=== PATIENT | male | born 1940 | race Caucasian/White ===

== ENCOUNTER → 2024-01-18 10:55 | Outpatient (REF) | payer MEDICARE, OTHER, SELFPAY | LOC: MRI 3T 10:55 | PROVIDERS: ATTENDING PHYSICIAN Physician Assistant Surgical; FAMILY PHYSICIAN Family Medicine | DX: M48.062 Spinal stenosis, lumbar region with neurogenic claudication (principal); M54.50 Low back pain, unspecified; M51.36 Other intervertebral disc degeneration, lumbar region; M41.86 Other forms of scoliosis, lumbar region | CPT/HCPCS: 72148 ==

== ENCOUNTER 2025-01-29 07:21 | Inpatient (IN) | payer MEDICARE, OTHER, SELFPAY ==
--- NOTE | 2025-01-13 12:37 | CM ---
CM reviewed medical records. CM spoke with patient and via Phone. Patient does not have ahistory of VN or SNF. Patient has a cane, walker, raised toilet set and grab bars . Patient is active with his PCP. Patient has medication coverage.
Patient is has his outpatient PT appointment for 02/03 at [facility].
PLAN: home with , outpatient PT.
[2025-01-20 11:47] LABS: Hematocrit 42.3 % (39.0-52.0); Hemoglobin 13.5 g/dL (13.0-18.0); Mean Corp Hgb Conc. 31.9 g/dL (33.0-37.0); Mean Corpuscular Volume 92.0 fL (80.0-94.0); Platelet Count 195 10^3/uL (130-400); Red Cell Dist. Width 13.2 % (11.5-14.5)
[2025-01-20 13:06] LABS: Glycohemoglobin (HgbA1c) 7.0 % (4.0-5.6)
[2025-01-20 14:21] VITALS: BMI 28.6
[2025-01-20 14:50] VITALS: BMI 28.6
[2025-01-20 15:46] LABS: ALT (SGPT) 15 U/L (0-50); AST (SGOT) 20 U/L (17-59); Albumin 4.4 g/dl (3.5-5.0); Alkaline Phosphatase 61 U/L (38-126); Blood Urea Nitrogen 27 mg/dl (9-20); Calcium 9.2 mg/dl (8.4-10.2); Carbon Dioxide 29 mmol/L (22-30); Chloride 101 mmol/L (98-107); Estimated Creatinine Clearance 37 ml/min; Glucose 124 mg/dl (70-99); Potassium 4.7 mmol/L (3.5-5.1); Sodium 140 mmol/L (135-145); Total Protein 7.2 g/dl (6.3-8.2); eGFR 54.85
[2025-01-29] VITALS (15 sets, daily range): BP systolic 107–152; BP diastolic 50–105; PULSE 70–75; O2SAT 92; BMI 28.6
--- NOTE | 2025-01-29 07:41 | W.PN.UPDATE ---
Update Note
Progress Note Update
L knee OA s/p L TKA w/ Dr Lawson 01/29/25
DVT prophylaxis - Eliquis at modified dosing, b/l venous foot pumps
- Will resume home Eliquis dosing on POD 3 if remaining hemodynamically stable
HTN - + parameters - monitor BP
CAD/inferior wall [place], 1993, status post CABG x4; NSTEMI, 2007, status post drug-eluting stent distal SVG to RCA; myocardial infarction, 2009, status post bare metal stent to SVG; status post CABG 2013
PAF
PVCs
Sinus bradycardia, asymptomatic
- Monitor on tele
- Continue BB w/ HR parameters
- Eliquis as stated above
Chronic diastolic HFpEF - reduce hourly IVF rate to prevent fluid overload
- Resume Lasix w/ SBP parameters to avoid post-surgical hypotension
- Monitor weight, I&Os
Renal insufficiency per pre-operative labs - minimize nephrotoxins
Iiu-jqmamft-xlstpbgqa diabetes, A1c 7.0 - monitor BS
- Resume home meds
- Add SSI AC, low dose Lantus at bedtime to accommodate for potential elevated BS readings
- Pt would benefit from Cefadroxil upon d/c for joint prophylaxis
GERD and Hiatal hernia - continue Pepcid
Chronic constipation - continue daily Miralax with our standard bowel regimen of Colace and Senna
Ambulatory dysfunction and balance difficulties - on fall precautions
Cervical degenerative disc disease with myelopathy - increase home Gabapentin dosage to accommodate for post-surgical pain
- Consider change to Lyrica if Gabapentin ineffective
Hypercholesterolemia
Mild valvular disease.
Chronic dyspnea on exertion
Colon polyps
Lumbar stenosis
[2025-01-29 08:00] LABS: Glucose - Point of Care 112 mg/dl (70-99)
[2025-01-29] MEDS: CELEBREX 200 MG PO (08:08)
[2025-01-29] MEDS: TYLENOL 650 MG PO ×5 (08:08→23:20)
[2025-01-29] MEDS: NORMOSOL-R/PLASMALYTE-A 1000 IV ×2 (08:08→13:16)
[2025-01-29 10:57] LABS: Glucose - Point of Care 148 mg/dl (70-99)
[2025-01-29] MEDS: NOVOLOG FLEXPEN-MODERATE RESISTANCE SC (11:30)
[2025-01-29] MEDS: ROXICODONE 5 MG PO (11:31)
[2025-01-29] MEDS: LASIX PO (12:30)
[2025-01-29] MEDS: GLUCOPHAGE 1000 MG PO (13:10)
[2025-01-29] MEDS: FARXIGA 10 MG PO (13:17)
[2025-01-29] MEDS: ANCEF 5 IV ×2 (16:06→23:01)
[2025-01-29 16:09] LABS: Glucose - Point of Care 243 mg/dl (70-99)
[2025-01-29] MEDS: NOVOLOG FLEXPEN-MODERATE RESISTANCE 3 UNITS SC (16:11)
[2025-01-29] MEDS: PEPCID 20 MG PO (17:22)
[2025-01-29] MEDS: LIPITOR 10 MG PO (17:23)
[2025-01-29] MEDS: LOPRESSOR 50 MG PO (17:24)
[2025-01-29] MEDS: COLACE 100 MG PO (20:20)
[2025-01-29] MEDS: ELIQUIS 2.5 MG PO (20:20)
[2025-01-29] MEDS: BACTROBAN 2% OINTMENT 1 APPLIC NASAL (20:20)
[2025-01-29] MEDS: NEURONTIN 200 MG PO (20:20)
[2025-01-29] MEDS: SENOKOT 17.2 MG PO (20:20)
[2025-01-29 21:27] LABS: Glucose - Point of Care 162 mg/dl (70-99)
[2025-01-29] MEDS: LANTUS 0.05 UNITS SC (21:50)
[2025-01-30] VITALS (9 sets, daily range): BP systolic 90–144; BP diastolic 48–73; PULSE 57–62; O2SAT 92; BMI 30.6; BMI 30.7
[2025-01-30] MEDS: TYLENOL 650 MG PO ×5 (04:00→20:26)
[2025-01-30 07:54] LABS: Glucose - Point of Care 136 mg/dl (70-99)
--- NOTE | 2025-01-30 08:16 | CM ---
CM reviewed medical records.
Patient for outpatient PT and return home to care of his .
PLAN: Home with outpatient PT
[2025-01-30 08:53] LABS: Blood Urea Nitrogen 32 mg/dl (9-20); Calcium 8.7 mg/dl (8.4-10.2); Carbon Dioxide 27 mmol/L (22-30); Chloride 100 mmol/L (98-107); Estimated Creatinine Clearance 46 ml/min; Glucose 133 mg/dl (70-99); Potassium 5.3 mmol/L (3.5-5.1); Sodium 135 mmol/L (135-145); eGFR > 60.00
[2025-01-30] MEDS: NOVOLOG FLEXPEN-MODERATE RESISTANCE SC ×2 (09:47→17:42)
[2025-01-30] MEDS: COLACE 100 MG PO ×2 (09:48→20:27)
[2025-01-30] MEDS: BACTROBAN 2% OINTMENT 1 APPLIC NASAL ×2 (09:48→20:26)
[2025-01-30] MEDS: FARXIGA 10 MG PO (09:48)
[2025-01-30] MEDS: ELIQUIS 2.5 MG PO ×2 (09:49→20:27)
[2025-01-30] MEDS: SENOKOT 17.2 MG PO ×2 (09:50→20:27)
[2025-01-30] MEDS: NEURONTIN 200 MG PO ×2 (09:50→20:27)
[2025-01-30] MEDS: GLUCOPHAGE 1000 MG PO (09:51)
[2025-01-30] MEDS: MIRALAX 17 GRAMS PO (09:51)
[2025-01-30] MEDS: LASIX PO (09:51)
[2025-01-30] MEDS: LOPRESSOR 75 MG PO (09:51)
[2025-01-30] MEDS: LASIX 40 MG IV ×2 (09:54→18:46)
--- NOTE | 2025-01-30 10:09 | W.PN.ORTHO ---
Today's Communication / Plan
-
Diurese today. Monitor weight, I&Os, and BMP in AM.
Work w/ PT and OT as able.
D/c when clinically stable.
Assessment
.
Distal Motor Intact: Yes
Dressing:
Clean, dry and intact.
Assessment:
L knee OA s/p L TKA w/ Dr Lawson 01/29/25
DVT prophylaxis - Eliquis at modified dosing, b/l venous foot pumps
- Will resume home Eliquis dosing on POD 3 if remaining hemodynamically stable
HTN - + parameters - BPs soft but stable, pt asymptomatic
- Will order Midodrine TID for SBP <125 while on increased dosing of Furosemide for acute CHF
CAD/inferior wall [place], 1993, status post CABG x4; NSTEMI, 2007, status post drug-eluting stent distal SVG to RCA; myocardial infarction, 2009, status post bare metal stent to SVG; status post CABG 2012
PAF
PVCs
Sinus bradycardia, asymptomatic
- Maintaining NSR on tele
- Continue BB w/ HR parameters
- Eliquis as stated above
Chronic diastolic HFpEF - reduced hourly IVF rate in an attempt to prevent fluid overload; unfortunately, weight is up from baseline and proBNP elevated at 3120, indicating acute CHF
- Baseline weight per pt 168-172 lbs
- Diurese w/ Lasix today at BID dosing. BMP stable this AM -> will reassess tomorrow.
- Fluid restriction and low Na diet
- Monitor weight, I&Os
- Consider cardio consult if weight does not improve
Renal insufficiency per pre-operative labs - minimize nephrotoxins
Own-shdzrhm-jytxrjxjk diabetes, A1c 7.0 - BS readings stable w/ resumption of home meds and SSI AC/low dose Lantus HS while inpatient
- Pt would benefit from Cefadroxil upon d/c for joint prophylaxis
GERD and Hiatal hernia - continue Pepcid
Chronic constipation - continue daily Miralax with our standard bowel regimen of Colace and Senna
Ambulatory dysfunction and balance difficulties - on fall precautions
Cervical degenerative disc disease with myelopathy - increased home Gabapentin dosage to accommodate for post-surgical pain
- Consider change to Lyrica if Gabapentin ineffective
Hypercholesterolemia
Mild valvular disease.
Chronic dyspnea on exertion
Colon polyps
Lumbar stenosis
Plan
.
Surgery / Date: L TKA w/ Dr Lawson 01/29/25
DVT Prophylaxis: Other (Eliquis )
Activity:
Out of bed.
PT/OT
Discharge Plan: Home w/ Outpatient PT
Subjective
.
.:
Patient resting comfortably in his chair.
L knee pain well tolerated w/ minimal pain meds.
Denies any new significant complaints; however, weight notably up from pre-op assessment.
Vital Signs and Labs
.
Vital Signs and Labs:
Lab Results
01/20/25 10:08
01/30/25 08:24
Temp Pulse Resp BP Pulse Ox
97.8 F 65 18 124/67 98
01/30/25 07:50 01/30/25 07:50 01/30/25 07:50 01/30/25 07:50 01/30/25 07:50
Non-invasive Hgb result: 12.6
Physical Exam
-
HEENT: No pallor, cyanosis, or jaundice. Throat clear.
NECK: Supple. No JVD.
RESPIRATORY: Fine crackles b/l lung bases.
CVS: S1, S2 normal. RRR.�
ABDOMEN: Soft, non-tender. No distension.
EXTREMITIES: Expected post-surgical L knee edema. Strength equal, no calf pain with palpation/dorsiflexion. Calves soft.
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 No focal deficits. 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
--- NOTE | 2025-01-30 10:32 | W.DS.TRANS ---
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
-
Discharge Instructions:
Sleep Apnea Risk Low
Discharge Diagnosis/Procedures L knee OA s/p L TKA w/ Dr Lawson 01/29/2025
Diet Diabetic, Carb Controlled
Additional Diets Minimize opioids and wear TEDs stockings to
prevent low blood pressure/dizziness.
Activity As tolerated,With Walker
Driving Restrictions Not until seen by your Dr
Bathing Restrictions OK to Shower
Other Services PT
Wound Care Dressing to be removed 1 week post-surgery.
Specialty Instructions Weigh Daily
Instructions:
Stand-Alone Forms: Total Hip/Knee Replacement D/C
Changes to Home Medications: Yes
Discharge Medications:
DC Medications w/original date entered in [facility]
apixaban 5 mg tablet (Eliquis) 5 mg PO BID Blood Clot Prevention/Tx 01/17/25
Held on 01/30/25. Instructions: Resume on 02/01/25.
empagliflozin 10 mg tablet (Jardiance) 10 mg PO DAILY Diabetes 01/17/25
famotidine 40 mg tablet (Pepcid) 40 mg PO QPM Gastrointestinal Issue 01/17/25
metformin 1,000 mg tablet 1,000 mg PO DAILY Diabetes 01/17/25
metoprolol tartrate 50 mg tablet (Lopressor) 50 mg PO QPM Blood Pressure 01/17/25
metoprolol tartrate 50 mg tablet (Lopressor) 75 mg PO DAILY Blood Pressure 01/17/25
multivitamin 1 tab PO DAILY Supplement 01/17/25
omega 9-tvh-bno-fish oil 1,000 mg (120 mg-180 mg) capsule (Fish Oil) 1 cap PO QPM Supplement 01/17/25
Held on 01/30/25. Instructions: Resume on 02/05/25.
pitavastatin calcium 2 mg tablet (Livalo) 2 mg PO QPM High Cholesterol 01/17/25
mupirocin 2 % topical ointment 1 applic intranasal BID #1 tube 01/20/25
Saccharomyces boulardii 250 mg capsule (Florastor) 250 mg PO DAILY #7 caps 01/30/25
acetaminophen 325 mg tablet (Tylenol) 650 mg (2 x 325 mg) PO Q4HWA #60 tabs 01/30/25
apixaban 2.5 mg tablet (Eliquis) 2.5 mg PO BID #1 tab 01/30/25
cefadroxil 500 mg capsule 500 mg PO DAILY #7 caps 01/30/25
docusate sodium 100 mg capsule 100 mg PO BID #30 caps 01/30/25
furosemide 40 mg tablet (Lasix) 40 mg PO DAILY Fluid Retention/Swelling #1 tab 01/30/25
gabapentin 100 mg capsule 200 mg (2 x 100 mg) PO BID #14 caps 01/30/25
ondansetron HCl 4 mg tablet 4 mg PO Q6H PRN nausea and vomiting #30 tabs 01/30/25
oxycodone 5 mg tablet 5 - 10 mg (1 - 2 x 5 mg) PO Q6H PRN moderate-severe pain #30 tabs 01/30/25
polyethylene glycol 3350 17 gram oral powder packet 17 g PO DAILY #14 ea 01/30/25
sennosides 8.6 mg tablet (Ilda-paul) 17.2 mg (2 x 8.6 mg) PO BID #60 tabs 01/30/25
Home Medication Changes
Saccharomyces boulardii 250 mg capsule (Florastor) 250 mg PO DAILY #7 caps 01/30/25
acetaminophen 325 mg tablet (Tylenol) 650 mg (2 x 325 mg) PO Q4HWA #60 tabs 01/30/25
apixaban 2.5 mg tablet (Eliquis) 2.5 mg PO BID #1 tab 01/30/25 - until POD 3
cefadroxil 500 mg capsule 500 mg PO DAILY #7 caps 01/30/25
docusate sodium 100 mg capsule 100 mg PO BID #30 caps 01/30/25
gabapentin 100 mg capsule 200 mg (2 x 100 mg) PO BID #14 caps 01/30/25 - until POD 7
ondansetron HCl 4 mg tablet 4 mg PO Q6H PRN nausea and vomiting #30 tabs 01/30/25
oxycodone 5 mg tablet 5 - 10 mg (1 - 2 x 5 mg) PO Q6H PRN moderate-severe pain #30 tabs 01/30/25
polyethylene glycol 3350 17 gram oral powder packet 17 g PO DAILY #14 ea 01/30/25
sennosides 8.6 mg tablet (Ilda-paul) 17.2 mg (2 x 8.6 mg) PO BID #60 tabs 01/30/25
Pending Results: No
[2025-01-30 12:12] LABS: Glucose - Point of Care 203 mg/dl (70-99)
[2025-01-30] MEDS: NOVOLOG FLEXPEN-MODERATE RESISTANCE 3 UNITS SC (12:49)
[2025-01-30] MEDS: ROXICODONE 5 MG PO (15:38)
[2025-01-30 16:40] LABS: Glucose - Point of Care 136 mg/dl (70-99)
[2025-01-30] MEDS: PEPCID 20 MG PO (18:46)
[2025-01-30] MEDS: LIPITOR 10 MG PO (18:46)
[2025-01-30] MEDS: LOPRESSOR PO ×2 (18:47→18:54)
[2025-01-30 21:24] LABS: Glucose - Point of Care 171 mg/dl (70-99)
[2025-01-30] MEDS: LANTUS 0.05 UNITS SC (21:59)
[2025-01-31] VITALS (9 sets, daily range): BP systolic 89–132; BP diastolic 55–88; PULSE 81; O2SAT 96; BMI 30.1
[2025-01-31] MEDS: TYLENOL PO (00:57)
[2025-01-31] MEDS: TYLENOL 650 MG PO ×5 (03:13→19:45)
[2025-01-31 07:56] LABS: Blood Urea Nitrogen 35 mg/dl (9-20); Calcium 8.6 mg/dl (8.4-10.2); Carbon Dioxide 29 mmol/L (22-30); Chloride 100 mmol/L (98-107); Estimated Creatinine Clearance 42 ml/min; Glucose 111 mg/dl (70-99); Potassium 4.4 mmol/L (3.5-5.1); Sodium 136 mmol/L (135-145); eGFR 54.85
[2025-01-31] MEDS: NOVOLOG FLEXPEN-MODERATE RESISTANCE SC ×2 (08:31→18:27)
[2025-01-31] MEDS: SENOKOT 17.2 MG PO ×2 (08:32→19:45)
[2025-01-31] MEDS: FARXIGA 10 MG PO (08:32)
[2025-01-31] MEDS: LOPRESSOR 75 MG PO (08:32)
[2025-01-31] MEDS: GLUCOPHAGE 1000 MG PO (08:32)
[2025-01-31] MEDS: NEURONTIN 200 MG PO ×2 (08:32→19:44)
[2025-01-31] MEDS: COLACE 100 MG PO ×2 (08:33→19:44)
[2025-01-31] MEDS: ELIQUIS 2.5 MG PO ×2 (08:33→19:44)
[2025-01-31] MEDS: MIRALAX 17 GRAMS PO (08:34)
[2025-01-31] MEDS: LASIX 40 MG PO (08:34)
[2025-01-31 08:41] LABS: Glucose - Point of Care 130 mg/dl (70-99)
--- NOTE | 2025-01-31 10:06 | W.PN.ORTHO ---
Today's Communication / Plan
-
L knee OA s/p L TKA w/ Dr Lawson 01/29/25
DVT prophylaxis - Eliquis at modified dosing, b/l venous foot pumps
- Will resume home Eliquis dosing on POD 3 if remaining hemodynamically stable
HTN - + parameters - variable orthostatic hypotension, Midrodine ordered yesterday
CAD/inferior wall [place], 1993, status post CABG x4; NSTEMI, 2007, status post drug-eluting stent distal SVG to RCA; myocardial infarction, 2009, status post bare metal stent to SVG; status post CABG 2013
PAF
PVCs
Sinus bradycardia, asymptomatic
- Maintaining NSR on tele
- Continue BB w/ HR parameters
- Eliquis as stated above
Chronic diastolic HFpEF - reduced hourly IVF rate in an attempt to prevent fluid overload; unfortunately, weight is up from baseline and proBNP elevated at 3120, indicating acute CHF
- Baseline weight per pt 168-172 lbs
- Diurese w/ Lasix today at BID dosing. BMP stable this AM -> will reassess tomorrow.
- Fluid restriction and low Na diet
- Monitor weight, I&Os
- Minor improvement on weight- plan for cardiology consultation and hospitalist to assist in management.
Renal insufficiency per pre-operative labs - minimize nephrotoxins
Kkx-eahtjhy-hrumzsevc diabetes, A1c 7.0 - BS readings stable w/ resumption of home meds and SSI AC/low dose Lantus HS while inpatient
- Pt would benefit from Cefadroxil upon d/c for joint prophylaxis
GERD and Hiatal hernia - continue Pepcid
Chronic constipation - continue daily Miralax with our standard bowel regimen of Colace and Senna
Ambulatory dysfunction and balance difficulties - on fall precautions
Postoperative urinary retention- refractory to cathx3- will consult urology.
Cervical degenerative disc disease with myelopathy - increased home Gabapentin dosage to accommodate for post-surgical pain
- Consider change to Lyrica if Gabapentin ineffective
Hypercholesterolemia
Mild valvular disease.
Chronic dyspnea on exertion
Colon polyps
Lumbar stenosis
Assessment
.
Distal Motor Intact: Yes
Dressing:
Clean, dry and intact.
Plan
.
Surgery / Date: Francisco molina/ Dr Lawson 01/29/25
Activity:
Out of bed.
PT/OT
Subjective
.
.:
Patient resting. Reports significant fatigue with PT and difficulty performing. Nursing reports urinary cath x3. Minor improvement in weight reduction but persisting orthostatic hypotension.
Vital Signs and Labs
.
Vital Signs and Labs:
Lab Results
01/20/25 10:08
01/31/25 06:20
Temp Pulse Resp BP Pulse Ox
97.7 F 90 16 119/76 92
01/31/25 07:25 01/31/25 07:25 01/31/25 07:25 01/31/25 08:32 01/31/25 07:25
Non-invasive Hgb result: 10.7
--- NOTE | 2025-01-31 10:55 | W.PN.URO.CBU ---
Today's Communication / Plan
-
place ector toney in [facility]
Assessment / Plan
-
[post op retention on pt with bph preop sxs . Will place [facility] will con asider flomax 04. if ok wuith cad=rdiology post op outpatient eval
Diagnosis
-
Date of Service: January 31, 2025
-
post op acute urinary retention 1000cc inpt with preop double cvoiding slow streamPatient Diagnosis:
Post Op Day:
Subjective
-
cannot void
Objective
-
Vital Signs
Temp Pulse Resp BP Pulse Ox
97.7 F 90 16 119/76 92
01/31/25 07:25 01/31/25 07:25 01/31/25 07:25 01/31/25 08:32 01/31/25 07:25
Intake and Output
01/30/25 01/31/25 02/01/25
06:59 06:59 06:59
Intake Total 2580 / 2580 240 / 240
Output Total 695 / 695 2825 / 2825 500 / 500
Balance 1885 / 1885 -2585 / -2585 -500 / -500
Intake:
Oral fluids 1620 / 1620 240 / 240
IV fluids (Total) 960 / 960
Output:
Urine, Voided 695 / 695 600 / 600
Straight cath output 2225 / 2225 500 / 500
Other:
Number of approximated MODERATE 1
amounts of urine
Laboratory Results
01/20/25 10:08
01/31/25 06:20
Review of Systems
-
Cardiac: Syncope
: Difficulty Voiding
Physical Exam
-
General - well developed, well nourished, no acute distress
Chest - clear bilaterally
Abdomen - soft, non-tender, positive bowel sounds, no CVAT, no incisional pain or distention
Genitalia - normal
Rectal - normal
Skin - warm & dry with no rash
Neuro - AOx3, no motor deficits
Extremities - no clubbing, no cyanosis, no edema
Incision - clean, dry
Dressing - clean, dry, intact
Care Review
Data Reviewed
Discussed with: Nursing and Family
--- NOTE | 2025-01-31 11:01 | CON.CAR ---
Consultation
Consultation Request
Date/Time Consultation Requested: January 31, 2025 11 AM
Date/Time Consultation Performed: February 01, 2020 5:11 AM
Requesting Provider: Orthopedic service
Performing Provider: Dr Vishal Mathew
Reason for Consultation: Congestive heart failure
Medical History
-
Chief Complaint: Shortness of breath
History of Present Illness:
She presented for elective for elective left knee total arthroplasty by Dr. Lawson on January 29, 2025.
Course has been complicated by urinary retention and volume overload leading to acute heart failure with preserved ejection fraction.
Urology has been consulted and additionally cardiology has been consulted to assist in management of acute on known HFpEF
proBNP on 01/30/2025 is 3120
Patient given 40 mg of IV Lasix 7/3 and 40 mg PO Lasix 7/4
Straight catheter placed by urology removed 1 L of fluid
Fluid balance over the past 24 hours is -3 L
Her baseline weights have been reported at 168-172 pounds. On 01/30/2025 weight is 178 pounds 9 ounces, weight this morning is 175 pounds 2 ounces.
PMH:
1. Osteoarthritis.
2. Hypertension.
3. Hypercholesterolemia.
4. Coronary artery disease/inferior wall myocardial infarction, 1993,
status post CABG x4; NSTEMI, 2008, status post drug-eluting
stent distal SVG to RCA; myocardial infarction, 2009, status
post bare metal stent to SVG; status post CABG 2012.
5. Paroxysmal atrial fibrillation, pharmacological therapy with
Lopressor and oral anticoagulation with Eliquis.
6. PVCs.
7. Sinus bradycardia, asymptomatic.
8. Chronic diastolic heart failure, preserved ejection fraction.
9. Mild valvular disease.
10. Chronic dyspnea on exertion.
11. Renal insufficiency per pre-operative labs.
12. Xpr-xurqwzc-qkegelnjb diabetes, A1c 7.0.
13. GERD.
14. Hiatal hernia.
15. Colon polyps.
16. Chronic constipation.
17. Ambulatory dysfunction and balance difficulties.
18. Cervical degenerative disc disease with myelopathy.
19. Lumbar stenosis.
20. Chronic kidney disease with baseline creatinine of approximately 1.2�1.3 with estimated GFR of between 37 and 46
Social History
Tobacco: Non-Smoker
Alcohol: None
Drug: None
Personal:
Living: With Family
Family History
Family History: Reviewed & Not Pertinent
Allergies / Home Medications
Allergy/AdvReac Type Severity Reaction Status Date / Time
No Known Allergies Allergy Unverified 01/29/25 07:35
�Medication �Instructions �Recorded �Confirmed �Type
apixaban 5 mg tablet (Eliquis) 5 mg PO BID Blood Clot 01/17/25 01/29/25 History
Held on 01/30/25. Prevention/Tx
Instructions: Resume on
02/01/25.
empagliflozin 10 mg tablet 10 mg PO DAILY Diabetes 01/17/25 01/29/25 History
(Jardiance)
famotidine 40 mg tablet (Pepcid) 40 mg PO QPM Gastrointestinal Issue 01/17/25 01/29/25 History
metformin 1,000 mg tablet 1,000 mg PO DAILY Diabetes 01/17/25 01/29/25 History
metoprolol tartrate 50 mg tablet 50 mg PO QPM Blood Pressure 01/17/25 01/29/25 History
(Lopressor)
metoprolol tartrate 50 mg tablet 75 mg PO DAILY Blood Pressure 01/17/25 01/29/25 History
(Lopressor)
multivitamin 1 tab PO DAILY Supplement 01/17/25 01/29/25 History
omega 9-zbn-hdt-fish oil 1,000 mg 1 cap PO QPM Supplement 01/17/25 01/29/25 History
(120 mg-180 mg) capsule (Fish Oil)
Held on 01/30/25.
Instructions: Resume on
02/05/25.
pitavastatin calcium 2 mg tablet 2 mg PO QPM High Cholesterol 01/17/25 01/29/25 History
(Livalo)
mupirocin 2 % topical ointment 1 applic intranasal BID #1 tube 01/20/25 Rx
Saccharomyces boulardii 250 mg 250 mg PO DAILY #7 caps 01/30/25 Rx
capsule (Florastor)
acetaminophen 325 mg tablet 650 mg (2 x 325 mg) PO Q4HWA #60 01/30/25 01/29/25 Rx
(Tylenol) tabs
apixaban 2.5 mg tablet (Eliquis) 2.5 mg PO BID #1 tab 01/30/25 Rx
cefadroxil 500 mg capsule 500 mg PO DAILY #7 caps 01/30/25 Rx
docusate sodium 100 mg capsule 100 mg PO BID #30 caps 01/30/25 Rx
furosemide 40 mg tablet (Lasix) 40 mg PO DAILY Fluid 01/30/25 01/29/25 Rx
Retention/Swelling #1 tab
gabapentin 100 mg capsule 200 mg (2 x 100 mg) PO BID #14 caps 01/30/25 Rx
ondansetron HCl 4 mg tablet 4 mg PO Q6H PRN nausea and 01/30/25 Rx
vomiting #30 tabs
oxycodone 5 mg tablet 5 - 10 mg (1 - 2 x 5 mg) PO Q6H 01/30/25 Rx
PRN moderate-severe pain #30 tabs
polyethylene glycol 3350 17 gram 17 g PO DAILY #14 ea 01/30/25 Rx
oral powder packet
sennosides 8.6 mg tablet (Ilda-paul) 17.2 mg (2 x 8.6 mg) PO BID #60 01/30/25 Rx
tabs
Review of Systems
-
History Source: Patient
All other systems: Negative unless noted
Constitutional: No Symptoms
EENT: No Symptoms
Respiratory: Trouble Breathing
Cardiac: No Symptoms
Abdomen/GI: No Symptoms
: Difficulty Voiding
Musculoskeletal: Joint Pain
Skin: No Symptoms
Neurological: Dizzy
Endocrine: No Symptoms
Hematologic/Lymphatic: No Symptoms
Physical Exam
Vital Signs
Temp Pulse Resp BP Pulse Ox
97.7 F 90 16 119/76 92
01/31/25 07:25 01/31/25 07:25 01/31/25 07:25 01/31/25 08:32 01/31/25 07:25
Lab Results
01/20/25 10:08
01/31/25 06:20
Alh-H-Jbfifwdsuwj Pept 3120 pg/ml 01/30/25 08:24
Physical Exam
General: Well Developed, Well Nourished, No Apparent Distress and Comfortable
HEENT: Normocephalic, Anicteric and Moist Mucous Membranes
Respiratory: Clear and Non Labored Respirations
Cardiac: S1/S2, Regular Rhythm and Other (Grade 1/6 apical holosystolic murmur, no rubs, normal PMI)
Breast: Deferred by me
GI: Soft, Non Tender, Non Distended and Normal Bowel Sounds
Rectal: Deferred by Provider
Musculoskeletal: No Clubbing, No Cyanosis and Edema (Trace pretibial edema bilaterally)
Skin: Warm and Dry
Neuro: Awake, Alert, Oriented and AO x 3
Psych: Calm
Impression / Plan
-
Primary medical, Dr. Stephany Anna
Cardiology, Dr. Matthew Chairez
Cardiac Impression:
Acute on chronic heart failure with preserved ejection fraction
Likely related to fluid overload during his hospital stay combined with postop urinary retention
Known coronary artery disease as listed in this document
Stable, no symptoms to suggest acute coronary syndrome
Paroxysmal atrial fibrillation
As an outpatient has been on Eliquis 5 mg twice daily for atrial fibrillation related thromboembolic risk reduction
Echocardiogram 08/03/2024: Ejection fraction 58%. No wall motion
abnormality. Severely reduced right ventricular systolic function.
Mildly dilated left atrium. Normal right atrium. Structurally normal
tricuspid valve without elevated PA systolic pressure. Mild mitral
regurgitation. Mild aortic stenosis. Mean gradient 12 mmHg.
Cardiac recommendations:
Significant diuresis over the past 24 hours, 3 L
Symptoms of shortness of breath have significantly improved/resolved.
By physical exam he is unlikely to be significantly intravascularly volume overloaded this morning.
Given his urinary retention he is planned for Becker catheter prior to discharge
- Recommend continuing home dose of oral Lasix at 40 mg daily
He has been having some symptomatic orthostatic hypotension, likely related to dysautonomia
- Avoid overdiuresis, no more IV Lasix
- Agree with use of midodrine
I reviewed my findings and recommendations with the patient, his and his daughter who are at bedside.
I have no objection to discharge home from a cardiac standpoint
Will sign off, please call us directly if we can be of any further assistance
Total time spent today was 75 minutes in preparing to see the patient, seeing the patient and coordination of care. This included review of recent laboratory evaluations, cardiact testing, imaging studies, primary care rtecords, specialty
consultations, hospital records, as well as personally interviewing and examining the patient, which included discussion of their tests, review/ordering medications, and communicating with other healthcare professionals and also treatment planning
as well as counseling.
Data Reviewed
-
Radiology: Report Reviewed by me
Medical Tests (Nuc Med, Echo etc): Report Reviewed by me
Labs: Labs Reviewed by me
--- NOTE | 2025-01-31 11:27 | CON.HOSP ---
Consultation
-
Date/Time Consultation Requested: 01/31/2025 10:30 AM
Date/Time Consultation Performed: 01/31/2025 11:30 AM
Requesting Provider: Dr. Lawson
Performing Provider: Dr. Leal
Reason for Consultation: Medical management
Family Physician
-
Family Physician: Stephany Anna
Chief Complaint
-
Medical management
History of Present Illness
84-year-old man was admitted for left total knee arthroplasty by Dr. Lawson. Postoperatively he had urinary retention, CHF fatigue and lethargy along with orthostatic hypotension. We are consulted for medical management. says that pt's BP
has been running low for the past month. She had preop cardiac check, but is not sure when his last echo was.
Medical History
Past Medical History
Past Medical History: Reports Other
Additional Past Medical History:
Chronic back pain, CHF, hyperlipidemia, constipation, GERD, arthritis, diabetes, coronary artery disease, atrial fibrillation, diabetic neuropathy
Past Surgical History: Reports Other (, lumbar laminectomy, bilateral carpal tunnel surgery, inguinal hernia repair, left knee arthroplasty, cardiac stent placement, cervical osteophyte C6 level surgery, left knee arthroscopy, C4-5 laminectomy,
umbilical hernia repair, sebaceous cyst excision, hemorrhoidal banding, rhizotomy, m)
Additional Past Surgical History:
CABG 1993 and redo in 2012
Social History
Tobacco: Non-smoker
Alcohol: None
Drug: None
Personal:
Living: With Family (Uses a chairlift between 1st and 2nd floors)
Family History
Family History: Reviewed & Not Pertinent
Allergies / Home Medications
Allergies reflects when Allergies were last updated in [facility].
Home Medications with original date entered in [facility]
Allergy/Medication List:
Allergies
Allergy/AdvReac Type Severity Reaction Status Date / Time
No Known Allergies Allergy Unverified 01/29/25 07:35
Home Medications
apixaban 5 mg tablet (Eliquis) 5 mg PO BID Blood Clot Prevention/Tx 01/17/25
Held on 01/30/25. Instructions: Resume on 02/01/25.
empagliflozin 10 mg tablet (Jardiance) 10 mg PO DAILY Diabetes 01/17/25
famotidine 40 mg tablet (Pepcid) 40 mg PO QPM Gastrointestinal Issue 01/17/25
metformin 1,000 mg tablet 1,000 mg PO DAILY Diabetes 01/17/25
metoprolol tartrate 50 mg tablet (Lopressor) 50 mg PO QPM Blood Pressure 01/17/25
metoprolol tartrate 50 mg tablet (Lopressor) 75 mg PO DAILY Blood Pressure 01/17/25
multivitamin 1 tab PO DAILY Supplement 01/17/25
omega [id number]-rrg-gtu-fish oil 1,000 mg (120 mg-180 mg) capsule (Fish Oil) 1 cap PO QPM Supplement 01/17/25
Held on 01/30/25. Instructions: Resume on 02/05/25.
pitavastatin calcium 2 mg tablet (Livalo) 2 mg PO QPM High Cholesterol 01/17/25
mupirocin 2 % topical ointment 1 applic intranasal BID #1 tube 01/20/25
Saccharomyces boulardii 250 mg capsule (Florastor) 250 mg PO DAILY #7 caps 01/30/25
acetaminophen 325 mg tablet (Tylenol) 650 mg (2 x 325 mg) PO Q4HWA #60 tabs 01/30/25
apixaban 2.5 mg tablet (Eliquis) 2.5 mg PO BID #1 tab 01/30/25
cefadroxil 500 mg capsule 500 mg PO DAILY #7 caps 01/30/25
docusate sodium 100 mg capsule 100 mg PO BID #30 caps 01/30/25
furosemide 40 mg tablet (Lasix) 40 mg PO DAILY Fluid Retention/Swelling #1 tab 01/30/25
gabapentin 100 mg capsule 200 mg (2 x 100 mg) PO BID #14 caps 01/30/25
ondansetron HCl 4 mg tablet 4 mg PO Q6H PRN nausea and vomiting #30 tabs 01/30/25
oxycodone 5 mg tablet 5 - 10 mg (1 - 2 x 5 mg) PO Q6H PRN moderate-severe pain #30 tabs 01/30/25
polyethylene glycol 3350 17 gram oral powder packet 17 g PO DAILY #14 ea 01/30/25
sennosides 8.6 mg tablet (Ilda-paul) 17.2 mg (2 x 8.6 mg) PO BID #60 tabs 01/30/25
Review of Systems
-
Constitutional: Reports Weight Gain; Denies Fever
Respiratory: Denies Trouble Breathing
Cardiac: Denies Chest Pain
Abdomen/GI: Denies Abdominal Pain
: Reports Difficulty Voiding
Musculoskeletal: Reports Joint Pain (left knee)
Neurological: Reports Dizzy
Physical Exam
Vital Signs
Vital Signs
Temp Pulse Resp BP Pulse Ox
97.8 F 67 16 95/55 96
01/31/25 11:26 01/31/25 11:26 01/31/25 11:26 01/31/25 11:26 01/31/25 11:26
Physical Exam
Respiratory: Clear
Cardiac: S1/S2 and Regular Rhythm
GI: Soft, Non Tender and Normal Bowel Sounds
Musculoskeletal: No Edema (mild knee site edema left side)
Skin: Warm
Neuro: AO x 3 and No Motor Deficits
Psych: Intact Judgement
Laboratory Results
-
Laboratory Results
01/20/25 10:08
01/31/25 06:20
Total Bilirubin 1.0 mg/dl (0.2-1.3) 01/20/25 10:08
AST 20 U/L (17-59) 01/20/25 10:08
ALT 15 U/L (0-50) 01/20/25 10:08
Alkaline Phosphatase 61 U/L (38-126) 01/20/25 10:08
Impression / Plan
-
IMPRESSION/PLAN:
# Acute on chronic HFpEF
Check EKG and troponin, chest x-ray
Echo 08/03/2024-EF 58%. No wall motion abnormality. Severely reduced RV systolic function. Mildly dilated LA, normal RA mild MR, mild .
Patient follows up with Dr. Matthew Polanco at [facility].
Patient got 40 mg Lasix IV on 01/31/2024 and 40 mg p.o. Lasix on 02/01/2024
Hold further IV Lasix
Cardiology has been consulted
# Urinary retention-Becker catheter to be placed today. If blood pressure can tolerate consider Flomax. Urology consultation noted
# Dizziness, orthostatic hypotension- Add TSH and Cortisol level. Hold further Lasix today. Resume PO Lasix tomorrow. Agree with Midodrine.
# Coronary artery disease with history of inferior wall [place] in 1993
CABG 1993 and redo in 2012
History of cardiac stents drug-eluting stent distal SVG to RCA.Bare metal stent to SVG.
No chest pain EKG with no acute changes
# Paroxysmal atrial fibrillation
Patient was on Eliquis and metoprolol
Currently on Eliquis 2.5 mg twice daily
Restart full anticoagulation when okay with orthopedics
# Hyperlipidemia-continue Livalo or equivalent
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
# Diabetes mellitus-hemoglobin A1c 7.0 on 01/20/2025
Jardiance, metformin as outpatient. Also on Lantus 5 HS and SS here
Sugars mostly under control.
# Hiatal hernia continue Pepcid
# Chronic constipation- Bowel regimen
# History of L4-L5 partial laminectomies, multiple lumbar level and large disc bulge and osteoarthritis
Cervical degenerative disc disease with myelopathy. C4-C5 laminectomy.
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
# Ambulatory dysfunction- has a chair lift at home
# DVT prophylaxis-Eliquis
D/W and 2 daughters at bed side
D/W RN
Patient likely needs to be watched with symptoms of dizziness and orthostasis, if blood pressure improves can be discharged tomorrow. PT is recommending SNF
Thank you for allowing us to participate in this patient's care. We will follow
Part of this note was created using voice recognition system. Occasional wrong word or��sound alike� substitutions may have inadvertently occurred due to the inherent limitations of voice recognition software. If noted kindly bring it to my
attention for correction.
[2025-01-31 12:18] LABS: Hematocrit 31.8 % (39.0-52.0); Hemoglobin 10.5 g/dL (13.0-18.0); Mean Corp Hgb Conc. 33.0 g/dL (33.0-37.0); Mean Corpuscular Volume 90.6 fL (80.0-94.0); Platelet Count 133 10^3/uL (130-400); Red Cell Dist. Width 13.6 % (11.5-14.5)
[2025-01-31 12:39] LABS: Glucose - Point of Care 160 mg/dl (70-99)
[2025-01-31] MEDS: NOVOLOG FLEXPEN-MODERATE RESISTANCE 1 UNITS SC (12:47)
[2025-01-31] MEDS: MILK OF MAGNESIA 30 ML PO (12:49)
[2025-01-31 13:06] LABS: Troponin I 0.597 ng/ml
[2025-01-31 13:54] LABS: Cortisol, Random 13.4 ug/dl
[2025-01-31] MEDS: PEPCID 20 MG PO (16:55)
[2025-01-31] MEDS: LIPITOR 10 MG PO (16:55)
[2025-01-31] MEDS: LOPRESSOR 50 MG PO ×2 (16:56→19:44)
[2025-01-31 17:29] LABS: Troponin I 1.360 ng/ml
[2025-01-31 17:33] LABS: Glucose - Point of Care 174 mg/dl (70-99)
--- NOTE | 2025-01-31 18:35 | PTCARENOTE ---
dr. Mathew notified of troponin 1.360
[2025-01-31 19:14] LABS: Troponin I 1.810 ng/ml
[2025-01-31 21:05] LABS: Troponin I 1.940 ng/ml
[2025-01-31 21:47] LABS: Glucose - Point of Care 149 mg/dl (70-99)
[2025-01-31] MEDS: LANTUS 0.05 UNITS SC (21:47)
[2025-02-01] VITALS (9 sets, daily range): BP systolic 94–147; BP diastolic 48–92; PULSE 72–77; O2SAT 90–97; BMI 29.3
[2025-02-01] MEDS: TYLENOL PO ×2 (01:11→05:11)
--- NOTE | 2025-02-01 02:17 | W.PN.UPDATE ---
Update Note
Progress Note Update
TT to combat control Cardiology to advise that troponins are continuing to trend upward. 0.597 -> 2.360 -> 1.810 -> 1.940 @ 20:23. Vital signs stable. Current EKG sent. Patient asymptomatic. Per Cardiology continue current course with next troponin at 6
am.
[2025-02-01 06:52] LABS: Blood Urea Nitrogen 33 mg/dl (9-20); Calcium 9.0 mg/dl (8.4-10.2); Carbon Dioxide 29 mmol/L (22-30); Chloride 102 mmol/L (98-107); Estimated Creatinine Clearance 49 ml/min; Glucose 129 mg/dl (70-99); Potassium 4.7 mmol/L (3.5-5.1); Sodium 138 mmol/L (135-145); eGFR > 60.00
[2025-02-01 06:54] LABS: Troponin I 1.630 ng/ml
[2025-02-01] MEDS: MIRALAX 17 GRAMS PO (08:35)
--- NOTE | 2025-02-01 08:35 | W.PN.ORTHO ---
Today's Communication / Plan
-
L knee OA s/p L TKA w/ Dr Lawson 01/29/25
Currently being medically managed with assistance of internal medicine; appreciate assistance with care of this patient and recommendations
DVT prophylaxis - Eliquis at modified dosing, b/l venous foot pumps
- Will resume home Eliquis dosing
Cardiology consulted with recommendations, appreciate assistance:
-continue midodrine as ordered
-Urinary Becker in place to assist with fluid retention and oral Lasix 40 mg with renal function monitoring
Renal insufficiency per pre-operative labs - minimize nephrotoxins
Nxd-[id number] diabetes, A1c 7.0 - BS readings stable w/ resumption of home meds and SSI AC/low dose Lantus HS while inpatient
- Pt would benefit from Cefadroxil upon d/c for joint prophylaxis
GERD and Hiatal hernia - continue Pepcid
Chronic constipation - continue daily Miralax with our standard bowel regimen of Colace and Senna
Ambulatory dysfunction and balance difficulties - on fall precautions
-Difficulty with physical therapy yesterday; last evaluation recommended course of home visiting physical therapy and bridge to outpatient physical therapy. Pending reevaluation today for consideration of case management involvement and discharge
planning
Postoperative urinary retention- refractory to cathx3
-Seen by urology and Becker placed to be maintained until discharge with outpatient follow-up for trial of discontinuation noted in discharge information. Appreciate consultation and assistance with care for patient
Cervical degenerative disc disease with myelopathy - increased home Gabapentin dosage to accommodate for post-surgical pain
- Consider change to Lyrica if Gabapentin ineffective
Hypercholesterolemia
Mild valvular disease.
Chronic dyspnea on exertion
Colon polyps
Lumbar stenosis
Assessment
.
Distal Motor Intact: Yes
Dressing:
Clean, dry and intact.
Plan
.
Surgery / Date: L TKA w/ Dr Lawson 01/29/25
Activity:
Out of bed.
PT/OT
Subjective
.
.:
Patient resting comfortably. Feels improved today
Vital Signs and Labs
.
Vital Signs and Labs:
Lab Results
01/31/25 12:12
02/01/25 06:06
Temp Pulse Resp BP Pulse Ox
98.2 F 83 18 138/92 92
02/01/25 07:28 02/01/25 07:28 02/01/25 07:28 02/01/25 07:28 02/01/25 07:28
Non-invasive Hgb result: 10.7
[2025-02-01] MEDS: SENOKOT 17.2 MG PO ×2 (08:36→20:31)
[2025-02-01] MEDS: FARXIGA 10 MG PO (08:36)
[2025-02-01] MEDS: GLUCOPHAGE 1000 MG PO (08:37)
[2025-02-01] MEDS: COLACE 100 MG PO ×2 (08:37→20:31)
--- NOTE | 2025-02-01 08:37 | W.PN.URO.CBU ---
Today's Communication / Plan
-
home with hill please teach hill and leg bag care
Assessment / Plan
-
[post op retention on pt with bph preop sxs . Will place hill flomax started pt to call office and schedule voiding trial
Diagnosis
-
Date of Service: February 01, 2025
-
Patient Diagnosis:
Post Op Day:
post op acute urinary retention 1000cc inpt with preop double cvoiding slow streamPatient Diagnosis:
Post Op Day:
Subjective
-
tolerating flomax
Objective
-
Vital Signs
Temp Pulse Resp BP Pulse Ox
98.2 F 83 18 138/92 92
02/01/25 07:28 02/01/25 07:28 02/01/25 07:28 02/01/25 07:28 02/01/25 07:28
Intake and Output
01/31/25 02/01/25 02/02/25
06:59 06:59 06:59
Intake Total 240 / 240 1200 / 1200
Output Total 2825 / 2825 1425 / 1425
Balance -2585 / -2585 -225 / -225
Intake:
Oral fluids 240 / 240 1200 / 1200
Output:
Urine, Hill 925 / 925
Urine, Voided 600 / 600
Straight cath output 2225 / 2225 500 / 500
Other:
Number of approximated MODERATE 1
amounts of urine
Laboratory Results
01/31/25 12:12
02/01/25 06:06
Review of Systems
-
: Difficulty Voiding
Physical Exam
-
General - well developed, well nourished, no acute distress
Chest - clear bilaterally
Abdomen - soft, non-tender, positive bowel sounds, no CVAT, no incisional pain or distention
Genitalia - normal
Rectal - normal
Skin - warm & dry with no rash
Neuro - AOx3, no motor deficits
Extremities - no clubbing, no cyanosis, no edema
Incision - clean, dry
Dressing - clean, dry, intact
Care Review
Data Reviewed
Discussed with: Nursing
[2025-02-01] MEDS: LASIX PO (08:38)
[2025-02-01] MEDS: NEURONTIN 200 MG PO ×2 (08:38→20:30)
[2025-02-01] MEDS: ELIQUIS 2.5 MG PO ×2 (08:39→09:41)
[2025-02-01] MEDS: TYLENOL 650 MG PO ×4 (08:39→20:31)
[2025-02-01] MEDS: LOPRESSOR 50 MG PO ×3 (08:41→22:01)
[2025-02-01] MEDS: NOVOLOG FLEXPEN-MODERATE RESISTANCE SC (08:53)
[2025-02-01 09:04] LABS: Glucose - Point of Care 130 mg/dl (70-99)
--- NOTE | 2025-02-01 09:28 | W.PN.HOSP.TC ---
Today's Communication/Plan
-
Await cardiology rounds today
Assessment / Plan
Assessment / Plan
84-year-old man was admitted for left total knee arthroplasty by Dr. Lawson. Postoperatively he had urinary retention, CHF fatigue and lethargy along with orthostatic hypotension. We are consulted for medical management. says that pt's BP
has been running low for the past month. She had preop cardiac check, but is not sure when his last echo was.
Seated in a chair. Patient feels better today
Denies any chest pain or shortness of breath.
Cardiovascular system S1-S2 appreciated
Chest clear to auscultation
Abdomen soft and nontender
Left knee surgical site looks stable. Mild edema in the leg as expected
Neuroexam is nonfocal
# Acute on chronic HFpEF
Check EKG and troponin, chest x-ray
Echo 08/03/2024-EF 58%. No wall motion abnormality. Severely reduced RV systolic function. Mildly dilated LA, normal RA mild MR, mild .
Patient follows up with Dr. Matthew Polanco at [facility].
Patient got 40 mg Lasix IV on 01/31/2024 and 40 mg p.o. Lasix on 02/01/2024
Hold further IV Lasix
Cardiology has been consulted
# Urinary retention-Becker catheter placed 01/31/2025. Add Flomax at bedtime, urology consultation noted
# Dizziness, orthostatic hypotension-normal TSH and Cortisol level. Agree with Midodrine.
Troponin slightly elevated. Trended down
# Elevated troponin-patient without any symptoms of chest pain or shortness of breath, defer to cardiology regarding next step
Troponin peaked at 1.94
# Coronary artery disease with history of inferior wall [place] in 1993
CABG 1993 and redo in 2012
History of cardiac stents drug-eluting stent distal SVG to RCA.Bare metal stent to SVG.
# Paroxysmal atrial fibrillation
Patient was on Eliquis and metoprolol
Discussed with orthopedics and full anticoagulation started on 02/01/2025
# Hyperlipidemia-continue Livalo or equivalent
# FRIDA resolved
# Diabetes mellitus-hemoglobin A1c 7.0 on 01/20/2025
Jardiance, metformin as outpatient. Also on Lantus 5 HS and SS here
Sugars mostly under control.
# Hiatal hernia continue Pepcid
# Chronic constipation- Bowel regimen
# History of L4-L5 partial laminectomies, multiple lumbar level and large disc bulge and osteoarthritis
Cervical degenerative disc disease with myelopathy. C4-C5 laminectomy.
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
# Ambulatory dysfunction- has a chair lift at home
# DVT prophylaxis-Eliquis
Discussed with orthopedics
Discussed with cardiology
D/W RN at bedside
Part of this note was created using voice recognition system. Occasional wrong word or��sound alike� substitutions may have inadvertently occurred due to the inherent limitations of voice recognition software. If noted kindly bring it to my
attention for correction.
Anticipated Discharge: Within 24 hours
Subjective/Interval History
-
Date of Service: February 01, 2025
Objective Data
-
Labs:
Laboratory Results
02/01/25
06:06
Sodium 138
Potassium 4.7
Chloride 102
Carbon Dioxide 29
BUN 33 H
Creatinine 1.1
Glucose 129 H
Calcium 9.0
Vital Signs:
Vital Signs
Temp Pulse Resp BP Pulse Ox
98.2 F 83 18 138/92 92
02/01/25 07:28 02/01/25 07:28 02/01/25 07:28 02/01/25 08:39 02/01/25 07:28
I&O
01/31/25 02/01/25 02/02/25
06:59 06:59 06:59
Intake Total 240 / 240 1200 / 1200
Output Total 2825 / 2825 1425 / 1425
Balance -2585 / -2585 -225 / -225
--- NOTE | 2025-02-01 10:48 | PTCARENOTE ---
Spoke with Kristie cell #[phone] to update. Also would like Nitroglycerin tablets sent home with him. She accidently put thru the wash. The order wash but she is worried if we send him home he will need before Monday. Will TT
[place] and Cardio
[2025-02-01 11:45] LABS: Glucose - Point of Care 215 mg/dl (70-99)
--- NOTE | 2025-02-01 12:44 | W.PN.CARDCBS ---
Today's Communication / Plan
-
Hold Eliquis and start baby aspirin until Saturday 02/03
Check echocardiogram
Will likely treat elevated troponin medically but given EKG changes would like to check echocardiogram first and review records from [facility]
Impression / Plan
-
Primary medical, Dr. Stephany Anna
Cardiology, Dr. Matthew Chairez
Cardiac Impression:
Elevated troponin with peak of 1.9/EKG changes
Acute on chronic heart failure with preserved ejection fraction
Likely related to fluid overload during his hospital stay combined with postop urinary retention
Known coronary artery disease as listed in this document
Stable, no symptoms to suggest acute coronary syndrome
Paroxysmal atrial fibrillation
As an outpatient has been on Eliquis 5 mg twice daily for atrial fibrillation related thromboembolic risk reduction
Echocardiogram 08/03/2024: Ejection fraction 58%. No wall motion
abnormality. Severely reduced right ventricular systolic function.
Mildly dilated left atrium. Normal right atrium. Structurally normal
tricuspid valve without elevated PA systolic pressure. Mild mitral
regurgitation. Mild aortic stenosis. Mean gradient 12 mmHg.
Cardiac recommendations:
Troponin is elevated with abnormal ECG
He denies chest pain or shortness of breath but did have an element of CHF
Will likely treat elevated troponin medically but would like to check echocardiogram on 02/03 and hold Eliquis until that time in case catheterization will be done
We will start baby aspirin and give 325 mg today
Would like to review records from [facility] from [place] as well before deciding about medical treatment versus catheterization
Volume status appears stable on oral Lasix
Blood pressure okay on midodrine
Progress Note - Scalp Treatment Specialist
Subjective
Date of Service: February 01, 2025
No chest pain or shortness of breath
Objective
Labs:
01/31/25 12:12
02/01/25 06:06
Labs
Hgb 10.5 g/dL (13.0-18.0) L 01/31/25 12:12
Hct 31.8 % (39.0-52.0) L 01/31/25 12:12
Plt Count 133 10^3/uL (130-400) 01/31/25 12:12
Sodium 138 mmol/L (135-145) 02/01/25 06:06
Potassium 4.7 mmol/L (3.5-5.1) 02/01/25 06:06
BUN 33 mg/dl (9-20) H 02/01/25 06:06
Creatinine 1.1 mg/dL (0.7-1.3) 02/01/25 06:06
Glucose 129 mg/dl (70-99) H 02/01/25 06:06
Troponins
01/31/25 01/31/25 01/31/25
12:12 16:53 18:42
Troponin I 0.597 H* 1.360 H* D 1.810 H* D
01/31/25 02/01/25
20:23 06:06
Troponin I 1.940 H* 1.630 H*
Vital Signs and I&O:
Vital Signs
Temp Pulse Resp BP Pulse Ox
97.8 F 71 16 112 92
02/01/25 11:10 02/01/25 11:10 02/01/25 11:10 02/01/25 11:10 02/01/25 11:10
Vital Signs
Temp Pulse Resp BP Pulse Ox
97.8 F 71 16 112 92
02/01/25 11:10 02/01/25 11:10 02/01/25 11:10 02/01/25 11:10 02/01/25 11:10
Intake & Output
01/30/25 01/31/25 02/01/25 02/02/25
06:59 06:59 06:59 06:59
Intake Total 2580 / 2580 240 / 240 1200 / 1200 600 / 600
Output Total 695 / 695 2825 / 2825 1425 / 1425
Balance 1885 / 1885 -2585 / -2585 -225 / -225 600 / 600
Physical Exam
Physical Exam
General: Well developed, well nourished in NAD.
Neck: Supple, no JVD, HJR, carotids +2 B/L, no bruits bilaterally.
Heart: Non displaced PMI, RRR, no murmurs, No S3, S4, no rubs.
Lungs: Scattered rhonchi
Extremities: No clubbing, cyanosis or edema bilaterally.
Neuro: Grossly nonfocal, awake, alert and oriented x3.
[2025-02-01] MEDS: NOVOLOG FLEXPEN-MODERATE RESISTANCE 2 UNITS SC (12:47)
--- NOTE | 2025-02-01 13:19 | CM ---
Reviewed the chart notes and spoke with the patient, spouse, and daughter at the bedside. PT/OT recommending home care and VN for hill care. Discussed are VNs, patient selected [facility] who he has had in the past. Referral sent via [facility]. CM
continues to be available to patient/family and is monitoring medical plan for needs at discharge.
Plan: Discharge to home when medically stable with [facility].
[2025-02-01] MEDS: ASPIRIN ENTERIC COATED 325 MG PO (14:16)
[2025-02-01] MEDS: LIPITOR 40 MG PO (16:45)
[2025-02-01] MEDS: PEPCID 20 MG PO (16:46)
[2025-02-01 17:59] LABS: Glucose - Point of Care 153 mg/dl (70-99)
[2025-02-01] MEDS: NOVOLOG FLEXPEN-MODERATE RESISTANCE 1 UNITS SC (18:01)
[2025-02-01] MEDS: FLOMAX 0.4 MG PO (20:31)
[2025-02-01 21:48] LABS: Glucose - Point of Care 232 mg/dl (70-99)
[2025-02-01] MEDS: LANTUS 0.05 UNITS SC (22:02)
[2025-02-02] VITALS (9 sets, daily range): BP systolic 95–151; BP diastolic 47–72; PULSE 62–77; O2SAT 92–94; BMI 29.3
[2025-02-02] MEDS: TYLENOL 650 MG PO ×5 (01:12→16:13)
[2025-02-02 05:54] LABS: Hematocrit 30.2 % (39.0-52.0); Hemoglobin 9.8 g/dL (13.0-18.0); Mean Corp Hgb Conc. 32.5 g/dL (33.0-37.0); Mean Corpuscular Volume 90.4 fL (80.0-94.0); Platelet Count 141 10^3/uL (130-400); Red Cell Dist. Width 13.7 % (11.5-14.5)
[2025-02-02 06:26] LABS: Blood Urea Nitrogen 32 mg/dl (9-20); Calcium 8.6 mg/dl (8.4-10.2); Carbon Dioxide 28 mmol/L (22-30); Chloride 104 mmol/L (98-107); Estimated Creatinine Clearance 49 ml/min; Glucose 121 mg/dl (70-99); Potassium 4.5 mmol/L (3.5-5.1); Sodium 136 mmol/L (135-145); eGFR > 60.00
[2025-02-02 07:51] LABS: Glucose - Point of Care 123 mg/dl (70-99)
[2025-02-02] MEDS: NOVOLOG FLEXPEN-MODERATE RESISTANCE SC ×3 (08:19→17:29)
[2025-02-02] MEDS: ASPIR LOW (ENTERIC COATED) 81 MG PO (08:24)
[2025-02-02] MEDS: GLUCOPHAGE 1000 MG PO (08:24)
[2025-02-02] MEDS: FARXIGA 10 MG PO (08:25)
[2025-02-02] MEDS: LOPRESSOR 50 MG PO ×3 (08:25→21:45)
[2025-02-02] MEDS: SENOKOT 17.2 MG PO ×2 (08:26→19:15)
[2025-02-02] MEDS: COLACE 100 MG PO ×2 (08:26→19:16)
[2025-02-02] MEDS: NEURONTIN 200 MG PO ×2 (08:27→19:16)
[2025-02-02] MEDS: LASIX PO (08:27)
[2025-02-02] MEDS: MIRALAX 17 GRAMS PO (08:27)
--- NOTE | 2025-02-02 08:27 | W.PN.CARDCBS ---
Today's Communication / Plan
-
Medical treatment for elevated troponin but will review records from [place]
Hold Eliquis until decision on catheterization is made in a.m. but likely treat medically
Check echocardiogram in a.m.
Impression / Plan
-
Primary medical, Dr. Stephany Anna
Cardiology, Dr. Matthew Chairez
Cardiac Impression:
Elevated troponin with peak of 1.9/EKG changes
Acute on chronic heart failure with preserved ejection fraction
Likely related to fluid overload during his hospital stay combined with postop urinary retention
Known coronary artery disease as listed in this document
Stable, no symptoms to suggest acute coronary syndrome
Paroxysmal atrial fibrillation
As an outpatient has been on Eliquis 5 mg twice daily for atrial fibrillation related thromboembolic risk reduction
Echocardiogram 08/03/2024: Ejection fraction 58%. No wall motion
abnormality. Severely reduced right ventricular systolic function.
Mildly dilated left atrium. Normal right atrium. Structurally normal
tricuspid valve without elevated PA systolic pressure. Mild mitral
regurgitation. Mild aortic stenosis. Mean gradient 12 mmHg.
Plan:
Will likely treat medically but would like to review patient's outpatient records from [place] in AM.
Have held Eliquis in the meantime. Will check echocardiogram as well in a.m.
Continue aspirin while Eliquis is on hold
Volume status appears stable on oral Lasix
Blood pressure okay on midodrine
Progress Note - Packager Machine
Subjective
Date of Service: February 02, 2025
No chest pain or shortness of breath
Objective
Labs:
02/02/25 05:32
02/02/25 05:32
Labs
Hgb 9.8 g/dL (13.0-18.0) L 02/02/25 05:32
Hct 30.2 % (39.0-52.0) L 02/02/25 05:32
Plt Count 141 10^3/uL (130-400) 02/02/25 05:32
Sodium 136 mmol/L (135-145) 02/02/25 05:32
Potassium 4.5 mmol/L (3.5-5.1) 02/02/25 05:32
BUN 32 mg/dl (9-20) H 02/02/25 05:32
Creatinine 1.1 mg/dL (0.7-1.3) 02/02/25 05:32
Glucose 121 mg/dl (70-99) H 02/02/25 05:32
Troponins
01/31/25 01/31/25 01/31/25
12:12 16:53 18:42
Troponin I 0.597 H* 1.360 H* D 1.810 H* D
01/31/25 02/01/25
20:23 06:06
Troponin I 1.940 H* 1.630 H*
Vital Signs and I&O:
Vital Signs
Temp Pulse Resp BP Pulse Ox
97.8 F 69 16 116/47 91
02/02/25 07:24 02/02/25 07:24 02/02/25 07:24 02/02/25 07:24 02/02/25 07:24
Vital Signs
Temp Pulse Resp BP Pulse Ox
97.8 F 69 16 116/47 91
02/02/25 07:24 02/02/25 07:24 02/02/25 07:24 02/02/25 07:24 02/02/25 07:24
Intake & Output
01/31/25 02/01/25 02/02/25 02/03/25
06:59 06:59 06:59 06:59
Intake Total 240 / 240 1200 / 1200 960 / 960
Output Total 2825 / 2825 1425 / 1425 1275 / 1275
Balance -2585 / -2585 -225 / -225 -315 / -315
Physical Exam
Physical Exam
General: Well developed, well nourished in NAD.
Neck: Supple, no JVD, HJR, carotids +2 B/L, no bruits bilaterally.
Heart: Non displaced PMI, RRR, no murmurs, No S3, S4, no rubs.
Lungs: Scattered rhonchi
Extremities: No clubbing, cyanosis or edema bilaterally.
Neuro: Grossly nonfocal, awake, alert and oriented x3.
[2025-02-02 08:42] LABS: Iron 27 ug/dl (49-181)
[2025-02-02 08:52] LABS: Total Iron Binding Capacity 204 ug/dl (261-462)
[2025-02-02 09:28] LABS: Ferritin 39.9 ng/ml (17.9-464.0)
[2025-02-02 09:42] LABS: Vitamin B12 472 pg/ml (239-931)
--- NOTE | 2025-02-02 09:42 | W.PN.UPDATE ---
Update Note
Progress Note Update
Patient was seen and examined this morning. Hospitalist/digital designer took over his primary request of orthopedic attending.
He reports doing very well physical therapy this morning and feels very good about his knee. Most recent recommendation was for visiting services for physical therapy; touch base with therapeutic case manager yesterday for discharge planning. Becker catheter
in place and pending trial removal with urology on an outpatient basis. Cardiology following and pending review with his primary precast worker for consideration of medical management versus cardiac catheterization.
On exam he has neurovasc intact with mild peripheral edema. Knee range of motion 0 to 100 degrees without pain. Minimal central strikethrough of dressing.
- Appreciate assistance of all involved and hospitalist taking over as primary
- Continue with daily PT/OT; discharge planning
- Potential medical management versus cardiac catheterization per cardiology
- Outpatient follow-up with urology for trial removal of Becker
- Orthopedic surgery will continue to follow
[2025-02-02 12:06] LABS: Glucose - Point of Care 108 mg/dl (70-99)
--- NOTE | 2025-02-02 12:07 | PTCARENOTE ---
update to via PC
--- NOTE | 2025-02-02 12:36 | W.PN.URO.CBU ---
Today's Communication / Plan
-
if no cardiac cath tomorw may remove hill and try voiding tril
Assessment / Plan
-
[post op retention on pt with bph preop sxs . Will place hill flomax started pt to call office and schedule voiding trialhowever as pt still hopitalized and now onflamx will attempt voiding trial mon unless cardiac acathe scheduled
Diagnosis
-
Date of Service: February 02, 2025
-
Patient Diagnosis:
Post Op Day:
Patient Diagnosis:
Post Op Day:
post op acute urinary retention 1000cc inpt with preop double cvoiding slow streamPatient Diagnosis:
Post Op Day:
Subjective
-
retention
Objective
-
Vital Signs
Temp Pulse Resp BP Pulse Ox
97.5 F 73 16 108/53 95
02/02/25 11:25 02/02/25 11:25 02/02/25 11:25 02/02/25 12:15 02/02/25 11:25
Intake and Output
02/01/25 02/02/25 02/03/25
06:59 06:59 06:59
Intake Total 1200 / 1200 960 / 960
Output Total 1425 / 1425 1275 / 1275
Balance -225 / -225 -315 / -315
Intake:
Oral fluids 1200 / 1200 960 / 960
Output:
Urine, Hill 925 / 925 475 / 475
Urine, Voided 800 / 800
Straight cath output 500 / 500
Laboratory Results
02/02/25 05:32
02/02/25 05:32
Review of Systems
-
: Difficulty Voiding
Physical Exam
-
General - well developed, well nourished, no acute distress
Chest - clear bilaterally
Abdomen - soft, non-tender, positive bowel sounds, no CVAT, no incisional pain or distention
Genitalia - normal
Rectal - normal
Skin - warm & dry with no rash
Neuro - AOx3, no motor deficits
Extremities - no clubbing, no cyanosis, no edema
Incision - clean, dry
Dressing - clean, dry, intact
Care Review
Data Reviewed
Discussed with: Nursing
--- NOTE | 2025-02-02 14:39 | W.PN.HOSP.TC ---
Today's Communication/Plan
-
Discussed with cardiology
Echo tomorrow
But hold Eliquis for now
Assessment / Plan
Assessment / Plan
84-year-old man was admitted for left total knee arthroplasty by Dr. Lawson. Postoperatively he had urinary retention, CHF fatigue and lethargy along with orthostatic hypotension. We are consulted for medical management. says that pt's BP
has been running low for the past month. She had preop cardiac check, but is not sure when his last echo was.
Seated in a chair. Patient feels better today
Denies any chest pain or shortness of breath.
Cardiovascular system S1-S2 appreciated
Chest clear to auscultation
Abdomen soft and nontender
Left knee surgical site looks stable. Mild edema in the leg as expected
Neuroexam is nonfocal
# Acute on chronic HFpEF
Check EKG and troponin, chest x-ray
Echo 08/03/2024-EF 58%. No wall motion abnormality. Severely reduced RV systolic function. Mildly dilated LA, normal RA mild MR, mild .
Patient follows up with Dr. Matthew Polanco at [facility].
Patient got 40 mg Lasix IV on 01/31/2024 and 40 mg p.o. Lasix on 02/01/2024
Cardiology has been consulted
# Urinary retention-Becker catheter placed 01/31/2025. Continue Flomax at bedtime, urology consultation noted
# Dizziness, orthostatic hypotension-normal TSH and Cortisol level. Agree with Midodrine.
Troponin slightly elevated. Trended down
# Elevated troponin-patient without any symptoms of chest pain or shortness of breath, defer to cardiology regarding next step
Troponin peaked at 1.94
# Coronary artery disease with history of inferior wall HI in 1993
CABG 1993 and redo in 2012
History of cardiac stents drug-eluting stent distal SVG to RCA.Bare metal stent to SVG.
# Paroxysmal atrial fibrillation
Patient was on Eliquis and metoprolol
Discussed with orthopedics and full anticoagulation started on 02/01/2025-Eliquis on hold now for potential cardiac procedure
# Hyperlipidemia-continue Livalo or equivalent
# FRIDA resolved
# Diabetes mellitus-hemoglobin A1c 7.0 on 01/20/2025
Jardiance, metformin as outpatient. Also on Lantus 5 HS and SS here
Sugars mostly under control.
# Hiatal hernia continue Pepcid
# Chronic constipation- Bowel regimen
# History of L4-L5 partial laminectomies, multiple lumbar level and large disc bulge and osteoarthritis
Cervical degenerative disc disease with myelopathy. C4-C5 laminectomy.
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
# Ambulatory dysfunction- has a chair lift at home
# DVT prophylaxis-Eliquis
Discussed with and 2 daughters at bedside
Discussed with cardiology
D/W RN
Part of this note was created using voice recognition system. Occasional wrong word or��sound alike� substitutions may have inadvertently occurred due to the inherent limitations of voice recognition software. If noted kindly bring it to my
attention for correction.
Anticipated Discharge: Within 24 hours
Subjective/Interval History
-
Date of Service: February 02, 2025
Objective Data
-
Labs:
Laboratory Results
02/02/25
05:32
WBC 7.5
Hgb 9.8 L
Hct 30.2 L
Plt Count 141
Sodium 136
Potassium 4.5
Chloride 104
Carbon Dioxide 28
BUN 32 H
Creatinine 1.1
Glucose 121 H
Calcium 8.6
Vital Signs:
Vital Signs
Temp Pulse Resp BP Pulse Ox
97.5 F 73 16 108/53 95
02/02/25 11:25 02/02/25 11:25 02/02/25 11:25 02/02/25 12:15 07/06/25 11:25
I&O
02/01/25 02/02/25 02/03/25
06:59 06:59 06:59
Intake Total 1200 / 1200 960 / 960
Output Total 1425 / 1425 1275 / 1275
Balance -225 / -225 -315 / -315
[2025-02-02] MEDS: MILK OF MAGNESIA 30 ML PO (16:11)
[2025-02-02] MEDS: FERRLECIT 110 MG IV (16:14)
[2025-02-02 17:18] LABS: Glucose - Point of Care 103 mg/dl (70-99)
[2025-02-02] MEDS: PEPCID 20 MG PO (17:53)
[2025-02-02] MEDS: LIPITOR 40 MG PO (17:53)
[2025-02-02] MEDS: LOVENOX 40 MG SC (17:54)
[2025-02-02] MEDS: TYLENOL PO ×2 (19:16→23:27)
[2025-02-02 21:07] LABS: Glucose - Point of Care 115 mg/dl (70-99)
[2025-02-02] MEDS: FLOMAX 0.4 MG PO (21:45)
[2025-02-02] MEDS: LANTUS 0.05 UNITS SC (21:45)
[2025-02-03 03:00] VITALS: BP 130/63
[2025-02-03] MEDS: TYLENOL PO ×2 (03:06→23:33)
[2025-02-03 06:00] VITALS: BMI 29.3
[2025-02-03 06:57] LABS: Hematocrit 32.6 % (39.0-52.0); Hemoglobin 10.7 g/dL (13.0-18.0); Mean Corp Hgb Conc. 32.8 g/dL (33.0-37.0); Mean Corpuscular Volume 91.1 fL (80.0-94.0); Platelet Count 160 10^3/uL (130-400); Red Cell Dist. Width 13.7 % (11.5-14.5)
[2025-02-03 07:18] LABS: Blood Urea Nitrogen 28 mg/dl (9-20); Calcium 8.4 mg/dl (8.4-10.2); Carbon Dioxide 27 mmol/L (22-30); Chloride 104 mmol/L (98-107); Estimated Creatinine Clearance 54 ml/min; Glucose 109 mg/dl (70-99); Magnesium 2.7 mg/dl (1.6-2.3); Potassium 4.6 mmol/L (3.5-5.1); Sodium 136 mmol/L (135-145); eGFR > 60.00
--- NOTE | 2025-02-03 07:46 | PN.CDI ---
CDI
- -
CDI:
Physician Documentation Request
Admit Date: 01/29/25 07:21
Dear Doctor Mel,
Please review the following and provide your response in the progress notes.
Clinical Indicators:
PN, 7
# Acute on chronic HFpEF
# Dizziness, orthostatic hypotension-normal TSH and Cortisol level.
# Elevated troponin-patient without any symptoms of chest pain or shortness of breath,...
#Troponin peaked at 1.94
Laboratory Tests
01/31/25 01/31/25 01/31/25
12:12 16:53 18:42
Troponin I 0.597 H* 1.360 H* D 1.810 H* D
01/31/25 02/01/25
20:23 06:06
Troponin I 1.940 H* 1.630 H*
Based on the above and your clinical assessment, please clarify in the progress notes, the appropriate diagnosis, if significant, that supports the above abnormalities and additional evaluation, monitoring and/or treatment rendered:
Non ischemic myocardial injury
Abnormal lab value, clinically insignificant
Other(please specify)
Use of terms such as suspected, likely, concern for, or probable (associated with a specific diagnosis that is being evaluated, monitored, or treated as if it exists) are acceptable and can be coded in the inpatient setting, when documented at the
time of discharge.
Thank you,
Elissa Palomino RN BSN CCDS
CDI Specialist
Please contact via tiger text
Please use your independent medical judgment in providing your response.
[2025-02-03 08:32] LABS: Glucose - Point of Care 103 mg/dl (70-99)
[2025-02-03 08:34] VITALS: BP 137/77
[2025-02-03] MEDS: NOVOLOG FLEXPEN-MODERATE RESISTANCE SC ×3 (08:37→17:47)
[2025-02-03] MEDS: MIRALAX 17 GRAMS PO (08:46)
[2025-02-03] MEDS: NEURONTIN 200 MG PO ×2 (08:46→19:21)
[2025-02-03] MEDS: FARXIGA 10 MG PO (08:47)
[2025-02-03] MEDS: GLUCOPHAGE 1000 MG PO (08:47)
[2025-02-03] MEDS: ASPIR LOW (ENTERIC COATED) 81 MG PO (08:47)
[2025-02-03] MEDS: LASIX PO (08:48)
[2025-02-03] MEDS: SENOKOT 17.2 MG PO ×2 (08:48→19:21)
[2025-02-03] MEDS: LOPRESSOR 50 MG PO ×3 (08:48→21:52)
[2025-02-03] MEDS: COLACE 100 MG PO ×2 (08:49→19:21)
[2025-02-03] MEDS: TYLENOL 650 MG PO ×4 (08:49→19:20)
--- NOTE | 2025-02-03 09:17 | W.PN.UPDATE ---
Update Note
Progress Note Update
Patient was seen and examined this morning. He is in good spirits and is doing well from an orthopedic standpoint. Hospitalist/global category manager took over as primary at the request of orthopedic attending due to complicated post-surgical course.
He continues to work w/ PT and OT and feels very good about his knee. The most recent recommendation was for VN and home PT upon d/c; will await further recs from PT and OT today. Becker catheter in place and pending voiding trial/removal with
urology on an outpatient basis. Cardiology following and pending review with his primary customs compliance analyst for consideration of medical management versus cardiac catheterization for vague chest discomfort w/ elevated troponin. Patient denies chest
discomfort today when asked.
On exam he is neurovasc intact with mild peripheral edema. Knee range of motion 0 to 100 degrees without pain. Minimal central strikethrough of dressing.
- Appreciate assistance of all involved and hospitalist taking over as primary
- Continue with daily PT/OT; focus on discharge planning
- Potential medical management versus cardiac catheterization per cardiology. Can resume Eliquis when indicated by Cardio.
- Outpatient follow-up with urology for trial/removal of Becker
- Orthopedic surgery will continue to follow though stable from our standpoint. Patient confirms he has 2 week f/u scheduled w/ surgeon's office already
--- NOTE | 2025-02-03 10:44 | W.PN.URO.CBU ---
Today's Communication / Plan
-
remove hill if no cardiac cath but if unsure or after 2pmthen alyshave hill ill recheck am chandrakantarnoldo fuller in [place]
Assessment / Plan
-
[post op retention on pt with bph preop sxs . Will place hill flomax started pt to call office and schedule voiding trialhowever as pt still hopitalized and now onflamx will attempt voiding trial mon unless cardiac acathe scheduled
Diagnosis
-
Date of Service: February 03, 2025
-
Patient Diagnosis:
Post Op Day:
Patient Diagnosis:
Post Op Day:
Patient Diagnosis:
Post Op Day:
post op acute urinary retention 1000cc inpt with preop double cvoiding slow streamPatient Diagnosis:
Post Op Day:
Subjective
-
awaiting voiding trial; as early as today pending any cardiac procedures
Objective
-
Vital Signs
Temp Pulse Resp BP Pulse Ox
97.6 F 72 16 137/77 96
02/03/25 08:34 02/03/25 08:34 02/03/25 08:34 02/03/25 08:46 02/03/25 08:34
Intake and Output
02/02/25 02/03/25 02/04/25
06:59 06:59 06:59
Intake Total 960 / 960 620 / 620
Output Total 1275 / 1275 975 / 975
Balance -315 / -315 -355 / -355
Intake:
Oral fluids 960 / 960 480 / 480
IV fluids (Total) 30 / 30
IV piggybacks 110 / 110
Output:
Urine, Hill 475 / 475 975 / 975
Urine, Voided 800 / 800
Laboratory Results
02/03/25 06:15
02/03/25 06:15
Review of Systems
-
: Difficulty Voiding
Physical Exam
-
General - well developed, well nourished, no acute distress
Chest - clear bilaterally
Abdomen - soft, non-tender, positive bowel sounds, no CVAT, no incisional pain or distention
Genitalia - normal
Rectal - normal
Skin - warm & dry with no rash
Neuro - AOx3, no motor deficits
Extremities - no clubbing, no cyanosis, no edema
Incision - clean, dry
Dressing - clean, dry, intact
Care Review
Data Reviewed
Discussed with: Nursing
[2025-02-03 11:59] VITALS: BP 136/68
--- NOTE | 2025-02-03 12:51 | W.PN.HOSP.TC ---
Today's Communication/Plan
-
Discharge today for voiding trial is okay
Assessment / Plan
Assessment / Plan
84-year-old man was admitted for left total knee arthroplasty by Dr. Lawson. Postoperatively he had urinary retention, CHF fatigue and lethargy along with orthostatic hypotension. We are consulted for medical management. says that pt's BP
has been running low for the past month. She had preop cardiac check, but is not sure when his last echo was.
Seated in a chair. Patient feels better today
Denies any chest pain or shortness of breath.
Cardiovascular system S1-S2 appreciated, sm at apex
Chest clear to auscultation
Abdomen soft and nontender
Left knee surgical site looks stable. Mild edema in the leg as expected
Neuroexam is nonfocal echo 02/03/2025-mild concentric LVH.
Ejection fraction 55 to 60%. Normal diastolic function. Thickened mitral valve leaflets. Mitral valve opens normally. Moderate MR. Thickened aortic valve with restricted leaflet motion. Mild to moderate aortic stenosis. Trace AI.
# Acute on chronic HFpEF
Check EKG and troponin, chest x-ray
Echo 08/03/2024-EF 58%. No wall motion abnormality. Severely reduced RV systolic function. Mildly dilated LA, normal RA mild MR, mild .
Patient follows up with Dr. Matthew Polanco at [facility].
Patient got 40 mg Lasix IV on 01/31/2024 and 40 mg p.o. Lasix 02/01/2024 onwards
Cardiology has been consulted
# Urinary retention-Becker catheter placed 01/31/2025. Continue Flomax at bedtime, urology consultation noted. VT today?
# Dizziness, orthostatic hypotension-normal TSH and Cortisol level. Agree with Midodrine.
Troponin slightly elevated. Trended down
# Elevated troponin-patient without any symptoms of chest pain or shortness of breath, defer to cardiology regarding next step
Troponin peaked at 1.94
Echo without any wall motion abnormality.
Cardiology feels that this is nonischemic cardiomyopathy
# Coronary artery disease with history of inferior wall MN in 1993
CABG 1994 and redo in 2012
History of cardiac stents drug-eluting stent distal SVG to RCA.Bare metal stent to SVG.
# Paroxysmal atrial fibrillation
Patient was on Eliquis and metoprolol
Discussed with orthopedics and full anticoagulation started on 02/01/2025-Eliquis was on hold now for potential cardiac procedure. Restarted today.
# Hyperlipidemia-continue Livalo or equivalent
# FRIDA resolved
# Diabetes mellitus-hemoglobin A1c 7.0 on 01/20/2025
Jardiance, metformin as outpatient. Also on Lantus 5 HS and SS here
Sugars mostly under control.
# Hiatal hernia continue Pepcid
# Chronic constipation- Bowel regimen
# History of L4-L5 partial laminectomies, multiple lumbar level and large disc bulge and osteoarthritis
Cervical degenerative disc disease with myelopathy. C4-C5 laminectomy.
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
# Ambulatory dysfunction- has a chair lift at home
# DVT prophylaxis-Eliquis
Discussed with cardiology
D/W Urology. Can leave if can passes voiding trial.
D/W RN
Part of this note was created using voice recognition system. Occasional wrong word or��sound alike� substitutions may have inadvertently occurred due to the inherent limitations of voice recognition software. If noted kindly bring it to my
attention for correction.
Anticipated Discharge: Today
Subjective/Interval History
-
Date of Service: February 03, 2025
Objective Data
-
Labs:
Laboratory Results
02/03/25
06:15
WBC 6.7
Hgb 10.7 L
Hct 32.6 L
Plt Count 160
Sodium 136
Potassium 4.6
Chloride 104
Carbon Dioxide 27
BUN 28 H
Creatinine 1.0
Glucose 109 H
Calcium 8.4
Vital Signs:
Vital Signs
Temp Pulse Resp BP Pulse Ox
97.7 F 78 18 136/68 96
02/03/25 11:59 02/03/25 11:59 02/03/25 11:59 02/03/25 11:59 02/03/25 11:59
I&O
02/02/25 02/03/25 02/04/25
06:59 06:59 06:59
Intake Total 960 / 960 620 / 620 600 / 600
Output Total 1275 / 1275 975 / 975 375 / 375
Balance -315 / -315 -355 / -355 225 / 225
[2025-02-03 13:05] LABS: Glucose - Point of Care 140 mg/dl (70-99)
[2025-02-03] MEDS: ELIQUIS 5 MG PO ×2 (13:23→19:21)
[2025-02-03] MEDS: FERRLECIT 110 MG IV (13:24)
--- NOTE | 2025-02-03 13:52 | W.PN.CARDCBS ---
Today's Communication / Plan
-
Echocardiogram okay
Stable cardiology status for discharge
Impression / Plan
-
Primary medical, Dr. Stephany Anna
Cardiology, Dr. Matthew Chairez
Cardiac Impression:
Elevated troponin with peak of 1.9/EKG changes
Acute on chronic heart failure with preserved ejection fraction
Likely related to fluid overload during his hospital stay combined with postop urinary retention
Known coronary artery disease as listed in this document
Stable, no symptoms to suggest acute coronary syndrome
Paroxysmal atrial fibrillation
As an outpatient has been on Eliquis 5 mg twice daily for atrial fibrillation related thromboembolic risk reduction
Mild to moderate aortic stenosis echocardiogram 02/03/2025
Echocardiogram 08/03/2024: Ejection fraction 58%. No wall motion
abnormality. Severely reduced right ventricular systolic function.
Mildly dilated left atrium. Normal right atrium. Structurally normal
tricuspid valve without elevated PA systolic pressure. Mild mitral
regurgitation. Mild aortic stenosis. Mean gradient 12 mmHg.
Echo 02/03/2025: Ejection fraction 55 to 60%, moderate MR, mild to moderate aortic stenosis with mean gradient of 12 mmHg valve area 1.4 cm, mildly dilated root with 3.8 cm ascending aorta
Plan:
Echocardiogram okay.
Troponin elevation thought to be non-TN ischemic injury
Restart Eliquis
Volume status appears stable on oral Lasix
Blood pressure okay on midodrine
Stable cardiology status for discharge
Discussed with primary service
Progress Note - Boat Tester
Subjective
Date of Service: February 03, 2025
No complaints
Objective
Labs:
02/03/25 06:15
02/03/25 06:15
Labs
Hgb 10.7 g/dL (13.0-18.0) L 02/03/25 06:15
Hct 32.6 % (39.0-52.0) L 02/03/25 06:15
Plt Count 160 10^3/uL (130-400) 02/03/25 06:15
Sodium 136 mmol/L (135-145) 02/03/25 06:15
Potassium 4.6 mmol/L (3.5-5.1) 02/03/25 06:15
BUN 28 mg/dl (9-20) H 02/03/25 06:15
Creatinine 1.0 mg/dL (0.7-1.3) 02/03/25 06:15
Glucose 109 mg/dl (70-99) H 02/03/25 06:15
Troponins
01/31/25 01/31/25 01/31/25
16:53 18:42 20:23
Troponin I 1.360 H* D 1.810 H* D 1.940 H*
02/01/25
06:06
Troponin I 1.630 H*
Vital Signs and I&O:
Vital Signs
Temp Pulse Resp BP Pulse Ox
97.7 F 78 18 133/68 96
02/03/25 11:59 02/03/25 11:59 02/03/25 11:59 02/03/25 13:23 02/03/25 11:59
Vital Signs
Temp Pulse Resp BP Pulse Ox
97.7 F 78 18 133/68 96
02/03/25 11:59 02/03/25 11:59 02/03/25 11:59 02/03/25 13:23 02/03/25 11:59
Intake & Output
02/01/25 02/02/25 02/03/25 02/04/25
06:59 06:59 06:59 06:59
Intake Total 1200 / 1200 960 / 960 620 / 620 600 / 600
Output Total 1425 / 1425 1275 / 1275 975 / 975 375 / 375
Balance -225 / -225 -315 / -315 -355 / -355 225 / 225
Physical Exam
Physical Exam
General: Well developed, well nourished in NAD.
Neck: Supple, no JVD, HJR, carotids +2 B/L, no bruits bilaterally.
Heart: Non displaced PMI, RRR, no murmurs, No S3, S4, no rubs.
Lungs: Scattered rhonchi
Extremities: No clubbing, cyanosis or edema bilaterally.
Neuro: Grossly nonfocal, awake, alert and oriented x3.
[2025-02-03 15:39] VITALS: BP 103/60; PULSE 62; O2SAT 95
--- NOTE | 2025-02-03 15:59 | W.PN.UPDATE ---
Update Note
Progress Note Update
met with family discussed about echo findings and cardiology recommendations about follow-up with his customer quality specialist
Voiding trial ongoing
Per discussion with urology plan is for discharge after patient voids today.
More than 30 minutes spent in discharge including
Final examination of the patient
Summarizing hospital stay
Instructions for continuing care to all relevant caregivers
Preparation of discharge records, prescriptions, and referral forms
Total time spent (in minutes): 39 min
--- NOTE | 2025-02-03 16:00 | W.DS.TRANS ---
DC Summary - [place]
-
Discharge Instructions:
Sleep Apnea Risk Low
Discharge Diagnosis/Procedures L knee OA s/p L TKA w/ Dr Lawson 01/29/2025
Nonischemic myocardial injury
Urinary retention status post Becker catheter
Coronary artery disease
Atrial fibrillation
Hyperlipidemia
Diabetes
Hiatal hernia
Diet Diabetic, Carb Controlled
Additional Diets Minimize opioids and wear TEDs stockings to
prevent low blood pressure/dizziness.
Activity As tolerated,With Walker
Driving Restrictions Not until seen by your Dr
Bathing Restrictions OK to Shower
Other Services PT,VN
Wound Care Dressing to be removed 1 week post-surgery.
Specialty Instructions Weigh Daily
Instructions:
Stand-Alone Forms: Total Hip/Knee Replacement D/C
Changes to Home Medications: Yes
Discharge Medications:
DC Medications w/original date entered in [employer] [facility]
apixaban 5 mg tablet (Eliquis) 5 mg PO BID Blood Clot Prevention/Tx 01/17/25
empagliflozin 10 mg tablet (Jardiance) 10 mg PO DAILY Diabetes 01/17/25
famotidine 40 mg tablet (Pepcid) 40 mg PO QPM Gastrointestinal Issue 01/17/25
metformin 1,000 mg tablet 1,000 mg PO DAILY Diabetes 01/17/25
multivitamin 1 tab PO DAILY Supplement 01/17/25
omega 2-hyz-oim-fish oil 1,000 mg (120 mg-180 mg) capsule (Fish Oil) 1 cap PO QPM Supplement 01/17/25
Held on 01/30/25. Instructions: Resume on 02/05/25.
pitavastatin calcium 2 mg tablet (Livalo) 2 mg PO QPM High Cholesterol 01/17/25
mupirocin 2 % topical ointment 1 applic intranasal BID #1 tube 01/20/25
Saccharomyces boulardii 250 mg capsule (Florastor) 250 mg PO DAILY #7 caps 01/30/25
cefadroxil 500 mg capsule 500 mg PO DAILY #7 caps 01/30/25
docusate sodium 100 mg capsule 100 mg PO BID #30 caps 01/30/25
furosemide 40 mg tablet (Lasix) 40 mg PO DAILY Fluid Retention/Swelling #1 tab 01/30/25
gabapentin 100 mg capsule 200 mg (2 x 100 mg) PO BID #14 caps 01/30/25
ondansetron HCl 4 mg tablet 4 mg PO Q6H PRN nausea and vomiting #30 tabs 01/30/25
oxycodone 5 mg tablet 5 - 10 mg (1 - 2 x 5 mg) PO Q6H PRN moderate-severe pain #30 tabs 01/30/25
polyethylene glycol 3350 17 gram oral powder packet 17 g PO DAILY #14 ea 01/30/25
sennosides 8.6 mg tablet (Ilda-paul) 17.2 mg (2 x 8.6 mg) PO BID #60 tabs 01/30/25
acetaminophen 325 mg tablet (Tylenol) 650 mg (2 x 325 mg) PO Q4HWA Pain #60 tabs 02/03/25
aspirin 81 mg tablet,delayed release 81 mg PO DAILY Blood clot prevention/tx #0 tabs 02/03/25
metoprolol tartrate 50 mg tablet 50 mg PO BID Heart disease/condition #60 tabs 02/03/25
midodrine 5 mg tablet 5 mg PO TID@0800,1300,1800 Blood pressure #90 tabs 02/03/25
tamsulosin 0.4 mg capsule 0.4 mg PO HS Urinary issue #30 caps 02/03/25
Home Medication Changes
Flomax is new, midodrine is new
Metoprolol dose changed
Aspirin is new
MiraLAX and Senokot are new
Oxycodone is new
Gabapentin changed to twice a day
Cefadroxil is new
Pending Results: No
[2025-02-03 16:07] VITALS: BP 134/60
--- NOTE | 2025-02-03 16:31 | CM ---
CM reviewed chart and pt with nursing
Plan for dc today pending pt urinates
Bedside meeting with pt, spouse and dtr
IMM verbally reviewed
Copy provided
Plan for home with HC, family will transport
Update to [facility] via [facility]
Discharge Disposition- home with [facility] via family
Fax- [phone]
[2025-02-03 16:47] LABS: Glucose - Point of Care 149 mg/dl (70-99)
[2025-02-03] MEDS: PEPCID 20 MG PO (17:49)
[2025-02-03] MEDS: LIPITOR 40 MG PO (17:49)
--- NOTE | 2025-02-03 19:31 | PTCARENOTE ---
Eugenio will be replaced, per pt and family they would like to stay tonight. TT Drs. Leal and Karl
[2025-02-03 20:57] LABS: Glucose - Point of Care 123 mg/dl (70-99)
[2025-02-03] MEDS: FLOMAX 0.4 MG PO (21:52)
[2025-02-03] MEDS: LANTUS 0.05 UNITS SC (21:53)
[2025-02-03 23:00] VITALS: BP 165/77
[2025-02-04 00:15] VITALS: BP 142/68
[2025-02-04] MEDS: TYLENOL PO ×2 (03:14→12:50)
[2025-02-04 06:00] VITALS: BMI 29.3
[2025-02-04 07:50] VITALS: BP 152/100
[2025-02-04 08:02] LABS: Glucose - Point of Care 87 mg/dl (70-99)
[2025-02-04] MEDS: NOVOLOG FLEXPEN-MODERATE RESISTANCE SC ×3 (08:17→16:47)
[2025-02-04 08:35] VITALS: BP 141/84; PULSE 75; O2SAT 94
[2025-02-04] MEDS: GLUCOPHAGE 1000 MG PO (08:48)
[2025-02-04] MEDS: TYLENOL 650 MG PO ×2 (08:48→16:19)
[2025-02-04] MEDS: FARXIGA 10 MG PO (08:48)
[2025-02-04] MEDS: COLACE 100 MG PO (08:50)
[2025-02-04] MEDS: LASIX 40 MG PO (08:50)
[2025-02-04] MEDS: ASPIR LOW (ENTERIC COATED) PO (08:53)
[2025-02-04] MEDS: LOPRESSOR 50 MG PO ×2 (08:54→16:19)
[2025-02-04] MEDS: MIRALAX 17 GRAMS PO (08:55)
[2025-02-04] MEDS: SENOKOT 17.2 MG PO (08:55)
[2025-02-04] MEDS: NEURONTIN 200 MG PO (08:55)
[2025-02-04] MEDS: ELIQUIS PO (08:56)
--- NOTE | 2025-02-04 09:37 | W.PN.UPDATE ---
Update Note
Progress Note Update
Saw patient shortly after working w/ PT this morning.
Orthopedic assessment remains unchanged from yesterday. Patient is in good spirits.
Aquacel dressing to be removed tomorrow as bleeding minimal.
Pt to f/u w/ Dr. Lawson's office 2 weeks post-op.
Appreciate all services involved in this patient's care.
--- NOTE | 2025-02-04 10:19 | W.PN.CARDCBS ---
Today's Communication / Plan
-
Stop aspirin hematuria
Hold Eliquis with hematuria
Stable cardiology status for discharge and will arrange follow-up
Impression / Plan
-
Primary medical, Dr. Stephany Anna
Cardiology, Dr. Matthew Chairez
Impression:
Elevated troponin with peak of 1.9/EKG changes/ non-TN ischemic injury
Acute on chronic heart failure with preserved ejection fraction
Likely related to fluid overload during his hospital stay combined with postop urinary retention
Known coronary artery disease as listed in this document
Stable, no symptoms to suggest acute coronary syndrome
Paroxysmal atrial fibrillation
As an outpatient has been on Eliquis 5 mg twice daily for atrial fibrillation related thromboembolic risk reduction
Mild to moderate aortic stenosis echocardiogram 02/03/2025
Hematuria
Echocardiogram 08/03/2024: Ejection fraction 58%. No wall motion
abnormality. Severely reduced right ventricular systolic function.
Mildly dilated left atrium. Normal right atrium. Structurally normal
tricuspid valve without elevated PA systolic pressure. Mild mitral
regurgitation. Mild aortic stenosis. Mean gradient 12 mmHg.
Echo 02/03/2025: Ejection fraction 55 to 60%, moderate MR, mild to moderate aortic stenosis with mean gradient of 12 mmHg valve area 1.4 cm, mildly dilated root with 3.8 cm ascending aorta
Plan:
Stable cardiology status for discharge.
He has hematuria at present and will stop aspirin. Will hold Eliquis until this is evaluated.
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
Discussed with nursing and patient in detail
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
Subjective
Date of Service: February 04, 2025
no complaints
Objective
Labs:
02/03/25 06:15
02/03/25 06:15
Labs
Hgb 10.7 g/dL (13.0-18.0) L 02/03/25 06:15
Hct 32.6 % (39.0-52.0) L 02/03/25 06:15
Plt Count 160 10^3/uL (130-400) 02/03/25 06:15
Sodium 136 mmol/L (135-145) 02/03/25 06:15
Potassium 4.6 mmol/L (3.5-5.1) 02/03/25 06:15
BUN 28 mg/dl (9-20) H 02/03/25 06:15
Creatinine 1.0 mg/dL (0.7-1.3) 02/03/25 06:15
Glucose 109 mg/dl (70-99) H 02/03/25 06:15
Vital Signs and I&O:
Vital Signs
Temp Pulse Resp BP Pulse Ox
97.9 F 93 18 152/100 93
02/04/25 07:50 02/04/25 08:50 02/04/25 07:50 02/04/25 08:50 02/04/25 07:50
Vital Signs
Temp Pulse Resp BP Pulse Ox
97.9 F 93 18 152/100 93
02/04/25 07:50 02/04/25 08:50 02/04/25 07:50 02/04/25 08:50 02/04/25 07:50
Intake & Output
02/02/25 02/03/25 02/04/25 02/05/25
06:59 06:59 06:59 06:59
Intake Total 960 / 960 620 / 620 1300 / 1300 240 / 240
Output Total 1275 / 1275 975 / 975 1225 / 1225 350 / 350
Balance -315 / -315 -355 / -355 75 / 75 -110 / -110
Physical Exam
Physical Exam
General: Well developed, well nourished in NAD.
Neck: Supple, no JVD, HJR, carotids +2 B/L, no bruits bilaterally.
Heart: Non displaced PMI, RRR, 2/6 basal systolic murmur, No S3, S4, no rubs.
Lungs: Clear to auscultation bilaterally, no wheeze, rhonchi, rubs bilaterally,
normal expiratory phase.
Extremities: No clubbing, cyanosis or edema bilaterally.
Neuro: Grossly nonfocal, awake, alert and oriented x3.
--- NOTE | 2025-02-04 10:43 | W.PN.HOSP.TC ---
Addendum entered and electronically signed by Lucero Leal MD 02/04/25 16:29:
OK for DC per urology
Original Note:
Today's Communication/Plan
-
Await plans from urology given pink urine
Discharge planning for urology
Assessment / Plan
Assessment / Plan
84-year-old man was admitted for left total knee arthroplasty by Dr. Lawson. Postoperatively he had urinary retention, CHF fatigue and lethargy along with orthostatic hypotension. We are consulted for medical management. says that pt's BP
has been running low for the past month. She had preop cardiac check, but is not sure when his last echo was.
Seated in a chair. Patient feels better today
Denies any chest pain or shortness of breath.
Cardiovascular system S1-S2 appreciated, sm at apex
Chest clear to auscultation
Abdomen soft and nontender
Left knee surgical site looks stable. Mild edema in the leg as expected
Probably with pink urine
echo 02/03/2025-mild concentric LVH.Ejection fraction 55 to 60%. Normal diastolic function. Thickened mitral valve leaflets. Mitral valve opens normally. Moderate MR. Thickened aortic valve with restricted leaflet motion. Mild to moderate aortic
stenosis. Trace AI.
# Acute on chronic HFpEF
Check EKG and troponin, chest x-ray
Echo 08/03/2024-EF 58%. No wall motion abnormality. Severely reduced RV systolic function. Mildly dilated LA, normal RA mild MR, mild .
Patient follows up with Dr. Matthew Polanco at [facility].
Patient got 40 mg Lasix IV on 01/31/2024 and 40 mg p.o. Lasix 02/01/2024 onwards
Cardiology has been consulted
# Urinary retention-Becker catheter placed 01/31/2025. Continue Flomax at bedtime, urology consultation noted.
Becker catheter was taken out on 02/03/25 for voiding trial and had to go back in same day.
Urine appears to be pink today
Eliquis held per cardiology this morning
# Dizziness, orthostatic hypotension-normal TSH and Cortisol level. Agree with Midodrine.
Troponin slightly elevated. Trended down
# Elevated troponin-patient without any symptoms of chest pain or shortness of breath, defer to cardiology regarding next step
Troponin peaked at 1.94
Echo without any wall motion abnormality.
Cardiology feels that this is nonischemic cardiomyopathy
# Coronary artery disease with history of inferior wall PA in 1993
CABG 1993 and redo in 2012
History of cardiac stents drug-eluting stent distal SVG to RCA.Bare metal stent to SVG.
# Paroxysmal atrial fibrillation
Patient was on Eliquis and metoprolol
Discussed with orthopedics and full anticoagulation started on 02/01/2025-Eliquis held again this morning for slight hematuria
# Hyperlipidemia-continue Livalo or equivalent
# FRIDA resolved
# Diabetes mellitus-hemoglobin A1c 7.0 on 01/20/2025
Jardiance, metformin as outpatient. Also on Lantus 5 HS and SS here
Sugars mostly under control.
# Hiatal hernia continue Pepcid
# Chronic constipation- Bowel regimen
# History of L4-L5 partial laminectomies, multiple lumbar level and large disc bulge and osteoarthritis
Cervical degenerative disc disease with myelopathy. C4-C5 laminectomy.
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
# Ambulatory dysfunction- has a chair lift at home
# DVT prophylaxis-Eliquis
D/W RN
Part of this note was created using voice recognition system. Occasional wrong word or��sound alike� substitutions may have inadvertently occurred due to the inherent limitations of voice recognition software. If noted kindly bring it to my
attention for correction.
Anticipated Discharge: Within 24 hours
Subjective/Interval History
-
Date of Service: February 04, 2025
Objective Data
-
Vital Signs:
Vital Signs
Temp Pulse Resp BP Pulse Ox
97.9 F 93 18 152/100 93
02/04/25 07:50 02/04/25 08:50 02/04/25 07:50 02/04/25 08:50 02/04/25 07:50
I&O
02/03/25 02/04/25 02/05/25
06:59 06:59 06:59
Intake Total 620 / 620 1300 / 1300 240 / 240
Output Total 975 / 975 1225 / 1225 350 / 350
Balance -355 / -355 75 / 75 -110 / -110
--- NOTE | 2025-02-04 11:06 | CM ---
Reviewed the chart notes. CM continues to be available to patient/family and is monitoring medical plan for needs at discharge.
Plan: Discharge to home with [facility] services.
Fax report to: [phone]
--- NOTE | 2025-02-04 12:13 | W.PN.URO.CBU ---
Today's Communication / Plan
-
teach pt leg bag and hill care please
Assessment / Plan
-
[post op retention on pt with bph preop sxs . home with hill outpatient voiding trial
Diagnosis
-
Date of Service: February 04, 2025
-
Patient Diagnosis:
Post Op Day:
Patient Diagnosis:
Post Op Day:
Patient Diagnosis:
Post Op Day:
Patient Diagnosis:
Post Op Day:
post op acute urinary retention 1000cc inpt with preop double cvoiding slow streamPatient Diagnosis:
Post Op Day:
Subjective
-
failed voiding trial 700cc drained some hematuria today
Objective
-
Vital Signs
Temp Pulse Resp BP Pulse Ox
97.9 F 93 18 152/100 93
02/04/25 07:50 02/04/25 08:50 02/04/25 07:50 02/04/25 08:50 02/04/25 07:50
Intake and Output
02/03/25 02/04/25 02/05/25
06:59 06:59 06:59
Intake Total 620 / 620 1300 / 1300 240 / 240
Output Total 975 / 975 1225 / 1225 350 / 350
Balance -355 / -355 75 / 75 -110 / -110
Intake:
Oral fluids 480 / 480 1160 / 1160 240 / 240
IV fluids (Total) 30 / 30 30 / 30
IV piggybacks 110 / 110 110 / 110
Output:
Urine, Hill 975 / 975 1225 / 1225 350 / 350
Laboratory Results
02/03/25 06:15
02/03/25 06:15
Review of Systems
-
: Difficulty Voiding and Bleeding
Physical Exam
-
General - well developed, well nourished, no acute distress
Chest - clear bilaterally
Abdomen - soft, non-tender, positive bowel sounds, no CVAT, no incisional pain or distention
Genitalia - normal
Rectal - normal
Skin - warm & dry with no rash
Neuro - AOx3, no motor deficits
Extremities - no clubbing, no cyanosis, no edema
Incision - clean, dry
Dressing - clean, dry, intact
Care Review
Data Reviewed
Discussed with: Nursing and Family
[2025-02-04 12:34] LABS: Glucose - Point of Care 106 mg/dl (70-99)
[2025-02-04] MEDS: FERRLECIT 110 MG IV (14:41)
[2025-02-04 15:00] VITALS: BP 144/62
--- NOTE | 2025-02-04 16:30 | W.DS.TRANS ---
Addendum entered and electronically signed by Lucero Leal MD 02/05/25 17:35:
Dictation- [id number]
Addendum entered and electronically signed by Lucero Leal MD 02/04/25 16:31:
Home Medication Changes
Flomax is new, midodrine is new
Metoprolol dose changed
Aspirin is new
MiraLAX and Senokot are new
Oxycodone is new
Gabapentin changed to twice a day
Cefadroxil is new
Pending Results: No
Original Note:
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
-
Discharge Instructions:
Sleep Apnea Risk Low
Discharge Diagnosis/Procedures L knee OA s/p L TKA w/ Dr Lawson 01/29/2025
Nonischemic myocardial injury
Urinary retention status post Becker catheter
Coronary artery disease
Atrial fibrillation
Hyperlipidemia
Diabetes
Hiatal hernia
Diet Diabetic, Carb Controlled
Additional Diets Minimize opioids and wear TEDs stockings to
prevent low blood pressure/dizziness.
Activity As tolerated,With Walker
Driving Restrictions Not until seen by your Dr
Bathing Restrictions OK to Shower
Other Services PT,VN
Wound Care Dressing to be removed 1 week post-surgery.
Specialty Instructions Weigh Daily
Instructions:
Stand-Alone Forms: Total Hip/Knee Replacement D/C
Changes to Home Medications: Yes
Discharge Medications:
DC Medications w/original date entered in [employer]
apixaban 5 mg tablet (Eliquis) 5 mg PO BID Blood Clot Prevention/Tx 01/17/25
empagliflozin 10 mg tablet (Jardiance) 10 mg PO DAILY Diabetes 01/17/25
famotidine 40 mg tablet (Pepcid) 40 mg PO QPM Gastrointestinal Issue 01/17/25
metformin 1,000 mg tablet 1,000 mg PO DAILY Diabetes 01/17/25
multivitamin 1 tab PO DAILY Supplement 01/17/25
omega [id number]-rht-fish oil 1,000 mg (120 mg-180 mg) capsule (Fish Oil) 1 cap PO QPM Supplement 01/17/25
Held on 01/30/25. Instructions: Resume on 02/05/25.
pitavastatin calcium 2 mg tablet (Livalo) 2 mg PO QPM High Cholesterol 01/17/25
mupirocin 2 % topical ointment 1 applic intranasal BID #1 tube 01/20/25
Saccharomyces boulardii 250 mg capsule (Florastor) 250 mg PO DAILY #7 caps 01/30/25
cefadroxil 500 mg capsule 500 mg PO DAILY #7 caps 01/30/25
docusate sodium 100 mg capsule 100 mg PO BID #30 caps 01/30/25
furosemide 40 mg tablet (Lasix) 40 mg PO DAILY Fluid Retention/Swelling #1 tab 01/30/25
gabapentin 100 mg capsule 200 mg (2 x 100 mg) PO BID #14 caps 01/30/25
ondansetron HCl 4 mg tablet 4 mg PO Q6H PRN nausea and vomiting #30 tabs 01/30/25
oxycodone 5 mg tablet 5 - 10 mg (1 - 2 x 5 mg) PO Q6H PRN moderate-severe pain #30 tabs 01/30/25
polyethylene glycol 3350 17 gram oral powder packet 17 g PO DAILY #14 ea 01/30/25
sennosides 8.6 mg tablet (Ilda-paul) 17.2 mg (2 x 8.6 mg) PO BID #60 tabs 01/30/25
acetaminophen 325 mg tablet (Tylenol) 650 mg (2 x 325 mg) PO Q4HWA Pain #60 tabs 02/03/25
ferrous sulfate 325 mg (65 mg iron) tablet 325 mg PO MOFR iron def #30 tabs 02/03/25
metoprolol tartrate 50 mg tablet 50 mg PO BID Heart disease/condition #60 tabs 02/03/25
midodrine 5 mg tablet 5 mg PO TID@0800,1300,1800 Blood pressure #90 tabs 02/03/25
tamsulosin 0.4 mg capsule 0.4 mg PO HS Urinary issue #30 caps 02/03/25
Home Medication Changes
Pending Results: No
[2025-02-04 16:36] LABS: Glucose - Point of Care 111 mg/dl (70-99)
== END 2025-02-04 18:00 | disposition home health service (06) | DRG 469 ==
LOC: 2 SOUTH 07:21
PROVIDERS: Physician Assistant; ADMITTING PHYSICIAN Orthopaedic Surgery; ATTENDING PHYSICIAN Hospitalist; CONSULT PHYSICIAN Internal Medicine Cardiovascular Disease; CONSULT PHYSICIAN Specialist; FAMILY PHYSICIAN Family Medicine; REFERRING PHYSICIAN Internal Medicine Cardiovascular Disease
PROC: 0SRD0J9 Replacement of Left Knee Joint with Synthetic Substitute, Cemented, Open Approach (ICD-10-PCS; 2025-01-29)
DX: M17.12 Unilateral primary osteoarthritis, left knee (principal); I50.33 Acute on chronic diastolic (congestive) heart failure; I5A Non-ischemic myocardial injury (non-traumatic); I13.0 Hypertensive heart and chronic kidney disease with heart failure and stage 1 through stage 4 chronic kidney disease, or unspecified chronic kidney disease; N17.9 Acute kidney failure, unspecified; M50.00 Cervical disc disorder with myelopathy, unspecified cervical region; N40.1 Benign prostatic hyperplasia with lower urinary tract symptoms; R33.8 Other retention of urine; I25.10 Atherosclerotic heart disease of native coronary artery without angina pectoris; E11.40 Type 2 diabetes mellitus with diabetic neuropathy, unspecified; K44.9 Diaphragmatic hernia without obstruction or gangrene; I95.1 Orthostatic hypotension; E11.22 Type 2 diabetes mellitus with diabetic chronic kidney disease; I48.0 Paroxysmal atrial fibrillation; I25.2 Old myocardial infarction; K59.09 Other constipation; Z95.1 Presence of aortocoronary bypass graft; Z95.5 Presence of coronary angioplasty implant and graft; K21.9 Gastro-esophageal reflux disease without esophagitis; E78.00 Pure hypercholesterolemia, unspecified; Z86.0100 Personal history of colon polyps, unspecified; M48.061 Spinal stenosis, lumbar region without neurogenic claudication; G89.29 Other chronic pain; N18.9 Chronic kidney disease, unspecified; Z79.01 Long term (current) use of anticoagulants; Z79.84 Long term (current) use of oral hypoglycemic drugs; Z79.899 Other long term (current) drug therapy
CPT/HCPCS: 36415; 71046; 73560; 80048; 80053; 82533; 82607; 82728; 82962; 83036; 83540; 83550; 83735; 83880; 84443; 84484; 85027; 87070; 93005; 93306; 97110; 97116; 97162; 97167; 97530; 97535; C1713; C1776; J2916